=== PATIENT | female | born 1985 | race Caucasian/White ===

== ENCOUNTER 2018-11-08 22:23 | Emergency (ER) | payer OTHER, SELFPAY ==
[2018-11-08 22:27] VITALS: BP 141/91; PULSE 81; RESP 16; TEMP 36.7; O2SAT 100
--- NOTE | 2018-11-08 22:52 | ED.GENADUL_ITS ---
Discharge Plan Disposition Patient Disposition: STILL A PATIENT Condition: Stable Discharge Details Chief Complaint: Nk/Back Pain Clinical Impression: Lumbar back pain, Abdominal pain, left lower quadrant, UTI (urinary tract infection) Primary Care Provider: None,None ED Provider: Donnie Kelly Home Meds and New Rx's Prescriptions: New acetaminophen [Mapap Extra Strength] 500 MG tablet 1,000 mg PO Q6H 5 Days Qty: 60 RF: 0 prednisone 50 MG tablet 50 mg PO DAILY Qty: 5 RF: 0 ibuprofen [Motrin IB] 200 MG tablet 600 mg PO Q6H 5 Days Qty: 60 RF: 0 lidocaine [Lidoderm] 1 PATCH patch 1 patch Topical Q24H Qty: 4 RF: 0 cyclobenzaprine 7.5 mg tablet 7.5 mg PO TID Qty: 30 RF: 0 cephalexin [Keflex] 500 mg capsule 500 mg PO BID Qty: 10 RF: 0 Discharge Instructions Instructions: Urinary Tract Infection in Women (ED), Low Back Strain (ED) Additional Instructions: Please take medications as directed. If you notice any worsening of your symptoms, or any new symptoms such as vomiting, diarrhea, fever, chills, shortness of breath, chest pain, numbness, bowel or bladder incontinence, weakness, or fainting , please return immediately to the emergency department for reevaluation. Please follow up with your primary care provider as soon as possible for reassessment and reevaluation. As always, it was a pleasure participating in your medical care today. Medical Decision Making <Donnie Kelly MD - Last Filed: 11/08/18 23:06> 33 yo female who denies chronic medical problems, smoker, denies alcohol or drug use, who comes i n with chief complaint of lower back pain that started about 3-4 horus ago. 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 She hasn't taken any pain meds. No fevers.Has has pain in the left lower back , no cva tenderness, no saddle anesthesia. SHe does note shotting sensation down both legs, intact sensation and no findings to suggest sea or cauda equina on exam. She does have llq pain on exam and has tenderness in this area. Denies vaginal bleeding or d/c. Will obtain CT to eval for possible diverticulits vs kidney stone, though I suspect the patient's symptoms are due to sciatica vs lumbar strain vs muscle spasm. pt will be signed out to Dr. Lozoya to f/u on labs and imaging results and disposition Differential Diagnosis muscle spasm, diverticulitis, lumbar strain <Myles Lozoya, - Last Filed: 11/09/18 01:03> The patient's laboratory workup has returned and there were no significant abnormalities. Minimal white count at 12, no bandemia. Renal function is normal, bilirubin is normal, liver function normal, lipase normal. Urinalysis does show evidence concerning for a urinary tract infection though. Patient has mild improvement of her symptoms, on reassessment she continues to demonstrate no concerning red flags of cauda equina syndrome, midline back pain, nuchal rigidity, or significant abdominal tenderness. She is feeling better and has been able to tolerate p.o. CT scan shows evidence of equivocal small bowel wall thickening compatible with nonspecific enteritis, no other acute process. Her back pain may be mildly musculoskeletal or it may be referred pain from her mild urinary tract infection. We will treat the UTI with Rocephin, and Keflex for home use. We will give Lidoderm patches,, steroid dose pack, and recommend NSAIDs and Flexeril. We discussed red flags for which to return. I have exten sively reviewed the treatment plan and discharge instructions with the patient and their family. I have addressed all patient concerns at this time. The patient and family was made aware of what symptoms to monitor for that would warrant a return to the emergency department. Discussed the plan with the patient and family, they demonstrate verbal understanding and agreement with our assessment and plan at this time. COMPARISON: No relevant prior studies available. FINDINGS: Lower thorax: No acute findings. ABDOMEN: Liver: Normal. No mass. Gallbladder and bile ducts: Normal. No calcified stones. No ductal dilation. Pancreas: Normal. No ductal dilation. Adrenals: Normal. No mass. Kidneys and ureters: Normal. No hydronephrosis. Stomach and bowel: Equivocal small bowel wall thickening compatible with a nonspecific enteritis, either infectious or inflammatory. Appendix: No evidence of appendicitis. PELVIS: Bladder: Unremarkable as visualized. Reproductive: Centrally located IUD in place. Probable involuting right sided ovarian follicular cyst measures 19 mm. ABDOMEN and PELVIS: Intraperitoneal space: Trace free fluid is present which is nonspecific but may reflect physiologic fluid or rupture of an ovarian cyst or follicle. Bones/joints: No acute fracture. No dislocation. Soft tissues: Unremarkable. Vasculature: Normal. No abdominal aortic aneurysm. Lymph nodes: Normal. No enlarged lymph nodes. IMPRESSION: 1. Trace free pelvic fluid. 2. Equivocal small bowel wall thickening compatible with a nonspecific enteritis, either infectious or inflammatory. 3. Probable involuting right sided ovarian follicular cyst measures 19 mm. Thank you for allowing us to participate in the care of your patient. Dictated and Authenticated by: Greyson Andrade MD 11/09/2018 12:45 AM Eastern Time ([place] & [place]) HPI <Donnie Kelly MD - Last Filed: 11/08/18 23:06> General Mode of arrival: ambulatory . Date/Time Provider Initiated Documentation: 11/08/18 22:24 . Limitations to Documentation: no limitations . Information obtained by: patient . History of Present Illness 33 year old F presents to the emergency department with the chief complaint of lower back and left lower quadrant pain, described as moderate, with intensity rated at 6. Quality is described as aching, and is localized to the back and abdomen. Patient reports no radiation. Patient started experiencing this hour(s) (5) and it has been constant. No relieving factors improve symptom(s), No exacerbating factors reported . Patient notes no other symptoms.. Patient did receive the following treatments prior to arrival, none Related Data Home Medications Medication Instructions Recorded Confirmed acetaminophen [Mapap Extra 1,000 mg PO Q6H 5 Days #60 tab 11/09/18 Strength] cephalexin [Keflex] 500 mg PO BID #10 cap 11/09/18 cyclobenzaprine 7.5 mg PO TID #30 tab 11/09/18 ibuprofen [Motrin Ib] 600 mg PO Q6H 5 Days #60 tab 11/09/18 lidocaine [Lidoderm] 1 patch TOPICAL Q24H #4 patch 11/09/18 prednisone 50 mg PO DAILY #5 tab 11/09/18 Previous Rx's Medication Instructions Recorded acetaminophen [Mapap Extra 1,000 mg PO Q6H 5 Days #60 tab 11/09/18 Strength] cephalexin [Keflex] 500 mg PO BID #10 cap 11/09/18 cyclobenzaprine 7.5 mg PO TID #30 tab 11/09/18 ibuprofen [Motrin Ib] 600 mg PO Q6H 5 Days #60 tab 11/09/18 lidocaine [Lidoderm] 1 patch TOPICAL Q24H #4 patch 11/09/18 prednisone 50 mg PO DAILY #5 tab 11/09/18 Allergies Allergy/AdvReac Type Severity Reaction Status Date / Time No Known Allergies Allergy Unverified 11/08/18 22:30 General Stated Complaint: Nk/Back Pain NEO: 3 Review of Systems <Donnie Kelly MD - Last Filed: 11/08/18 23:06> Review of Systems All systems reviewed & are unremarkable except as noted in HPI and below Constitutional Denies chills, Denies fever(s) and Denies weakness Cardiovascular Denies chest pain and Denies dyspnea Respiratory Denies cough and Denies dyspnea Gastrointestinal Denies abdominal pain, Denies nausea and Denies vomiting Musculoskeletal Denies joint swelling Integumentary/Breasts Denies rash Neurologic Denies weakness PFSH <Donnie Kelly MD - Last Filed: 11/08/18 23:06> Social History Smoking and Tabacco status: Current every day Exam <Donnie Kelly MD - Last Filed: 11/08/18 23:06> Const General: no acute distress Orientation: alert HENID Head: normal to inspection Ears: external ears normal General nose exam: external nose normal Mouth: moist mucous membranes Eyes General: appearance normal, both eyes and all related structures Neck Neck: normal visual inspection Resp Effort & Inspection: normal respiratory effort and able to speak in complete sentences Cardio Rate: regular rate GI Inspection: normal to inspection and no abdominal wall ecchymosis Skin General skin exam: no rashes or lesions noted Neuro General: alert and oriented x3 Extrem General: normal to inspection Psych Mental Status: mental status grossly normal Course <Donnie Kelly MD - Last Filed: 11/08/18 23:06> Vital Signs Temperature 36.7 C 11/08/18 22:27 Pulse 81 11/08/18 22:27 Respiratory Rate 16 11/08/18 22:27 Blood Pressure 141/91 H 11/08/18 22:27 Pulse Oximetry 100 11/08/18 22:27 Temperature 36.7 C 11/08/18 22:27 Temperature Source Temporal Artery Scan 11/08/18 22:27 Pulse 81 11/08/18 22:27 Respiratory Rate 16 11/08/18 22:27 Respiratory Effort 11/08/18 22:30 Blood Pressure 141/91 H 11/08/18 22:27 Blood Pressure Position Sitting 11/08/18 22:27 Pulse Oximetry 100 11/08/18 22:27 Oxygen Delivery Method Room Air 11/08/18 22:27 Oxygen Flow Rate 0 11/08/18 22:27 Pain Level 8 11/08/18 22:31
[2018-11-08] MEDS: Ketorolac 30 MG/ML VIAL IVP (23:02)
[2018-11-08] MEDS: Normal Saline Flush 10 ML SYR IVP ×2 (23:03→23:25)
[2018-11-08] MEDS: Normal Saline 1,000 ML 1000 ML IV (23:03)
[2018-11-08 23:20] LABS: Bilirubin Negative (Negative); Blood Moderate (Negative); Clarity Clear; Glucose Negative (Negative); Ketones Negative (Negative); Leukocyte Esterase Large (Negative); Nitrite Negative (Negative); Specific Gravity >= 1.030 (1.005-1.025); Urobilinogen 0.2 EU/dL (Up TO 0.2)
[2018-11-08 23:22] LABS: Abs Immature Grans 0.02 k/cumm (0.0-0.09); Absolute Basophil Count 0.05 k/cumm (0.0-0.2); Absolute Eosinophil Count 0.63 k/cumm (0.0-0.7); Absolute Lymphocyte Count 3.38 k/cumm (1.2-3.4); Absolute Monocyte Count 0.74 k/cumm (0.11-0.7); Basophils % 0.4; Eosinophils % 4.9; HCT 40.1 % (36.0-46.0); HGB 13.5 g/dL (12.0-15.5); Immature Grans % 0.2; Lymphocytes % 26.3; Mean Corp. HGB Concentration 33.7 g/dL (32.0-36.0); Mean Corpuscular Hemoglobin 31.5 pg (27.0-33.0); Mean Corpuscular Volume 93.7 fL (80-95); Mean Platelet Volume 10.5 fL (8.0-11.0); Monocytes % 5.8; Neutrophils % 62.4; Platelet Count 259 x1000/uL (130-400); RBC 4.28 m/cumm (4.00-5.20); RBC Distribution Width 12.1 % (11.7-14.6); White Blood Cell Count 12.84 k/cumm (4.4-10.8)
[2018-11-08 23:27] LABS: ALT 20 U/L (12-78); AST 13 U/L (15-37); Albumin 3.6 g/dL (3.4-5.0); Alkaline Phosphatase 69 U/L (46-116); Anion Gap 7.9 mmol/L (3-11); BUN 15 mg/dL (7-18); Bilirubin, Total 0.3 mg/dL (0.2-1.0); CO2 29.1 mmol/L (21.0-32.0); CREATININE 0.91 mg/dL (0.55-1.02); Calcium 8.7 mg/dL (8.5-10.1); Chloride 104 mmol/L (98-107); Glucose 79 mg/dL (70-100); Lipase 87 U/L (73-393); Potassium 3.4 mmol/L (3.5-5.1); Sodium 141 mmol/L (136-145); Total Protein 7.2 g/dL (6.4-8.2)
[2018-11-08 23:29] LABS: ALT 19 U/L (12-78); AST 14 U/L (15-37); Albumin 3.6 g/dL (3.4-5.0); Alkaline Phosphatase 72 U/L (46-116); Bilirubin, Direct 0.08 mg/dL (0.00-0.20); Bilirubin, Total 0.3 mg/dL (0.2-1.0); Magnesium 1.9 mg/dL (1.8-2.4); Total Protein 7.2 g/dL (6.4-8.2)
[2018-11-08 23:32] LABS: Bacteria Few HPF (Negative); Crystals Few Amorphous HPF (Negative); Epithelial Cells Many HPF (Negative)
[2018-11-08 23:33] LABS: C & S Indicated? No/Sq. Contamination; Casts Negative LPF (Negative); Mucus Negative (Negative)
[2018-11-08 23:37] LABS: Absolute Neutrophil Count 8.01 k/cumm (1.2-6.7)
[2018-11-08] MEDS: Omnipaque 350 MG/ML 100 ML BTL IJ (23:53)
--- NOTE | 2018-11-08 23:55 | DI.CT_ITS ---
SYMPTOM/DIAGNOSIS: LEFT LOWER ABDOMINAL PAIN CT ABDOMEN AND PELVIS: CT scan of the abdomen and pelvis was performed following the uneventful administration of intravenous contrast material. The visualized lung bases are clear. The liver is unremarkable. The portal, superior mesenteric and splenic veins are patent. The gallbladder is negative. No biliary ductal dilatation is seen. The pancreas, spleen and adrenal glands are unremarkable as are the kidneys, ureters and bladder. There is an intrauterine device in good position. The reproductive organs are otherwise unremarkable. There is a question of mild thickening of the wall of the proximal small bowel. This may represent a nonspecific enteritis. No evidence of bowel obstruction seen. There is a normal appendix present. There is a trace amount of free fluid in the pelvis which may be physiologic. No focal fluid collection is seen. No significant abdominal or pelvic adenopathy or pneumoperitoneum is present. No acute abnormality is seen in the bones. IMPRESSION: 1. Question of small bowel wall thickening which may represent a nonspecific inflammatory or infectious enteritis. 2. Trace amount of free fluid in the pelvis which is likely physiologic.
[2018-11-09] MEDS: Lidocaine 5% Patch 2 PATCH TP (00:40)
--- NOTE | 2018-11-09 00:46 | DI.VRAD_ITS ---
EXAM: CT Abdomen and Pelvis With Contrast EXAM DATE/TIME: 11/08/2018 10:46 PM CLINICAL HISTORY: 33 years old, female; Pain; Abdominal pain and other: Back and pelvis pain; Localized; Left lower quadrant (llq); Prior surgery; Surgery date: 6+ months; Surgery type: C section in 2016; Patient HX: Severe back pain and pelvis pain, llq pain off and on. PT states she tweaked her back at work TECHNIQUE: Axial computed tomography images of the abdomen and pelvis with intravenous contrast. All CT scans at this facility use at least one of these dose optimization techniques: automated exposure control; mA and/or kV adjustment per patient size (includes targeted exams where dose is matched to clinical indication); or iterative reconstruction. Coronal and sagittal reformatted images were created and reviewed. CONTRAST: 100 ml of Omnipaque 350 administered intravenously. COMPARISON: No relevant prior studies available. FINDINGS: Lower thorax: No acute findings. ABDOMEN: Liver: Normal. No mass. Gallbladder and bile ducts: Normal. No calcified stones. No ductal dilation. Pancreas: Normal. No ductal dilation. Spleen: Normal. No splenomegaly. Adrenals: Normal. No mass. Kidneys and ureters: Normal. No hydronephrosis. Stomach and bowel: Equivocal small bowel wall thickening compatible with a nonspecific enteritis, either infectious or inflammatory. Appendix: No evidence of appendicitis. PELVIS: Bladder: Unremarkable as visualized. Reproductive: Centrally located IUD in place. Probable involuting right sided ovarian follicular cyst measures 19 mm. ABDOMEN and PELVIS: Intraperitoneal space: Trace free fluid is present which is nonspecific but may reflect physiologic fluid or rupture of an ovarian cyst or follicle. Bones/joints: No acute fracture. No dislocation. Soft tissues: Unremarkable. Vasculature: Normal. No abdominal aortic aneurysm. Lymph nodes: Normal. No enlarged lymph nodes. IMPRESSION: 1. Trace free pelvic fluid. 2. Equivocal small bowel wall thickening compatible with a nonspecific enteritis, either infectious or inflammatory. 3. Probable involuting right sided ovarian follicular cyst measures 19 mm. Dictated and Authenticated by: Greyson Andrade MD. Ordering:ELISSA Fields MD
[2018-11-09] MEDS: methylPREDNISolone SUCC 125 MG VIAL IVP (01:26)
[2018-11-09 01:37] VITALS: BP 119/75; PULSE 68; RESP 15; TEMP 36.7; O2SAT 100
== END 2018-11-09 01:49 | disposition still patient (30) ==
LOC: ER 11-09 01:55
PROVIDERS: Emergency Provider Emergency Medicine
DX: M54.5 Low back pain (principal); X50.1XXA Overexertion from prolonged static or awkward postures, initial encounter; Y92.71 Barn as the place of occurrence of the external cause; R10.32 Left lower quadrant pain; N39.0 Urinary tract infection, site not specified
CPT/HCPCS: 36415; 80053; 80076; 81025; 83690; 96361; 96365; 96375; 99284; 74177; 81003; 81015; 83735; 85025; J1885; J2930; J3490

== ENCOUNTER 2020-05-18 08:50 | Observation (INO) | payer BC, SELFPAY ==
[2020-05-18] VITALS (38 sets, daily range): BP systolic 102–134; BP diastolic 64–90; PULSE 50–98; RESP 14–22; TEMP 36.1–36.6; O2SAT 95–188
--- NOTE | 2020-05-18 09:08 | ED.GENADUL_ITS ---
Discharge Plan Disposition Patient Disposition: [facility] INPATIENT Condition: Stable Discharge Details Chief Complaint: Abd Prob Clinical Impression: Acute cholecystitis Attending Provider: Martha Dubon Primary Care Provider: Jemima Palacio ED Provider: Trudi Crum Discharge Data Discharge Date/Time-TO BE ENTERED AT DEPARTURE: 05/18/20 14:26 Medical Decision Making 0900 -- 34yo F with a history of and D&C who presents with upper abdominal and right lower quadrant with multiple episodes of bilious vomiting since yesterday. Vitals within normal limits. She appears uncomfortable and moaning in pain. Sh e has right upper quadrant, left upper quadrant and right lower quadrant tenderness abdomen is soft without rigidity. Differential diagnosis includes GERD, gastritis, PUD, cholelithiasis, cholecystitis, appendicitis, etc. Will place an IV, bolus IV fluids, screening labs, GI cocktail, Pepcid, Zofran and obtain a CT abdomen and right upper quadrant ultrasound. test negative. 1130 --labs and imaging reviewed. White blood cell count 10.83. 20-50 WBCs in urinalysis but appears contaminated. Between gallbladder ultrasound and CT abdomen, findings appear consistent with acute cholecystitis. Patient reassessed and she denies any relief of pain. Will give a dose of morphine. Case discussed with general surgery who will come to evaluate patient in the ED. 1300 --Dr. Dubon evaluated patient at bedside. Patient denies any significant relief of pain. Patient offered to go home with follow-up with surgery in the office or can do cholecystectomy today. Patient states she is in too much pain to go home. Dr. Dubon will take to the OR. Medical Records Medical records reviewed: Yes I reviewed the patient's medical records. Imaging Data Radiologic Study: Radiologist's impression: US ABDOMEN CLINICAL HISTORY: RUQ abd pain, r/o cholelithiasis/cholecystitis TECHNIQUE: Ultrasound abdomen performed using standard protocol. COMPARISON: No exams were available for comparison FINDINGS: LIVER: Normal size and echogenicity. No focal liver lesions are seen.. GALLBLADDER: A 2 centimeter mobile gallstone and sludge are noted.. No evidence of wall thickening. No pericholecystic fluid identified. TOLLIVER'S SIGN: Negative. BILIARY SYSTEM: No intrahepatic or extrahepatic biliary ductal dilation. KIDNEYS: Kidneys are symmetric in size. No evidence of renal calculi. No evidence of hydronephrosis. No renal mass or cyst identified. PANCREAS: Normal where visualized. SPLEEN: Not enlarged. ABDOMINAL AORTA AND IVC: Visualized portions normal caliber. ASCITES: None seen. IMPRESSION: Cholelithiasis and gallbladder sludge. No findings to suggest acute cholecystitis. CT ABDOMEN PELVIS W CLINICAL HISTORY: LUQ/RUQ/RLQ pain, r/o appendicitis, cholecystitis. TECHNIQUE: Imaging Protocol: Axial computed tomography images with coronal and sagittal reformatted images were created and reviewed CONTRAST MATERIAL: Intravenous: Omnipaque 350 Contrast volume:100 cc Oral: no COMPARISON: CT CT ABDOMEN PELVIS W from 11/08/2018 US US ABDOMEN from 05/18/2020 FINDINGS: ABDOMEN: Lung Bases: Normal where visualized. Liver: Normal density. No measurable mass. Gallbladder and biliary tract: No radiodense calculus. There is mild distention is well as wall thickening. There is a trace amount of pericholecystic fluid. There is mild periportal edema. No biliary dilatation is seen. The findings could indicate acute cholecystitis. Pancreas: Normal density, no abnormal calcifications or inflammatory process. Spleen: Normal. Kidneys: Normal size, contour and axis. No radiodense stones or obstructive uropathy. No masses seen. Adrenal glands: No masses seen. Abdominal Aorta: Abdominal portion non-dilated. PELVIS: Bladder: Symmetric distention, no gross wall thickening. Bowel: No obstruction or bowel wall thickening. Normal appendix. Peritoneal cavity: No ascites, collection or mesenteric inflammatory response. Bones: Within normal limits. Reproductive organs: An IUD is noted within the uterus. The ovaries are unremarkable. Lymph nodes: Unremarkable. Impression: Gallbladder distention with wall thickening and pericholecystic fluid, suspi cious for acute cholecystitis. Lab Data Lab results reviewed: Yes I reviewed the patient's lab results. Labs: Laboratory Tests Range/Units 05/18/20 05/18/20 05/18/20 09:00 09:00 09:12 WBC (4.4-10.8) 10^3/uL 10.83 H RBC (3.93-5.22) 10^6/uL 4.32 Hgb (11.2-15.7) g/dL 13.5 Hct (36.0-46.0) % 39.8 MCV (80-95) fL 92.1 MCH (27.0-33.0) pg 31.3 MCHC (32.0-36.0) % 33.9 RDW (11.7-14.6) % 12.4 Plt Count (130-400) 10^3/uL 181 MPV (8.0-11.0) fL 10.8 Immature Gran % 0.3 Neutrophils % 78.0 Lymphocytes % 15.1 Monocytes % 4.6 Eosinophils % 1.5 Basophils % 0.5 Nucleated RBC % % 0 Absolute Neutrophils (1.2-6.7) 10^3/uL 8.45 H Absolute Lymphocytes (1.2-3.4) 10^3/uL 1.64 Absolute Monocytes (0.1-0.8) 10^3/uL 0.50 Absolute Eosinophils (0.0-0.7) 10^3/uL 0.16 Absolute Basophils (0.0-0.2) 10^3/uL 0.05 Sodium (136-145) mmol/L 142 Potassium (3.5-5.1) mmol/L 3.5 Chloride (98-107) mmol/L 105 Carbon Dioxide (21.0-32.0) mmol/L 28.2 Anion Gap (3-11) mmol/L 8.8 BUN (7-18) mg/dL 13 Creatinine (0.55-1.02) mg/dL 0.82 Estimated GFR/1.73 m2 (mL/min/1.73m2) >= 60.00 Glucose (74-106) mg/dL 136 H Calcium (8.5-10.1) mg/dL 8.8 Total Bilirubin (0.2-1.0) mg/dL 0.3 AST (15-37) U/L 17 ALT (14-59) U/L 31 Alkaline Phosphatase (46-116) U/L 63 Total Protein (6.4-8.2) g/dL 6.9 Albumin (3.4-5.0) g/dL 3.8 Lipase (73-393) U/L 57 Urine Color (Yellow) Yellow Urine Clarity (Clear) Sl cloudy Urine pH (5-8) 6.0 Ur Specific [place] (1.005-1.025) >= 1.030 H Urine Protein (Negative) mg/dL Negative Urine Ketones (Negative) mg/dL Trace H Urine Blood (Negative) Negative Urine Nitrite (Negative) Negative Urine Bilirubin (Negative) Negative Urine Urobilinogen (Up TO 0.2) EU/dL 0.2 Ur Leukocyte Esterase (Negative) Small H Urine RBC (0-2) HPF 3-5 H Urine WBC (0-5) HPF 20-50 H Ur Epithelial Cells (Negative) HPF Many Urine Crystals (Negative) HPF Negative Urine Bacteria (Negative) HPF Many Urine Casts (Negative) LPF Negative Urine Mucus (Negative) Moderate Ur Culture Indicated? No/sq. contamination Urine Glucose (Negative) mg/dL Negative HPI General Mode of arrival: ambulatory . Date/Time Provider Initiated Documentation: 05/18/20 08:57 . Limitations to Documentation: no limitations . Information obtained by: patient . HPI Narrative: Patient is a 34-year-old female with a history of and D&C who presents for sharp abdominal pain with a few episodes of vomiting since yesterday. Patient describes the pain as constant, sharp located in the upper abdomen and right lower quadrant. She has vomited food and bile a few times since yesterday, last episode 30 minutes ago. She had a small normal bowel movement this morning. She denies any known fever, diarrhea, urinary symptoms. Related Data Home Medications Medication Instructions Recorded Confirmed cyclobenzaprine 5 mg tablet 10 mg PO HS PRN tab 11/12/18 05/18/20 ibuprofen 800 mg tablet 800 mg PO TID PRN tab 11/12/18 05/18/20 Iud 1 ea DIRECTED 05/18/20 05/18/20 Allergies Allergy/AdvReac Type Severity Reaction Status Date / Time No Known Allergies Allergy Verified 05/18/20 08:59 General Stated Complaint: Abd Prob NEO: 3 Review of Systems All systems reviewed & are unremarkable except as noted in HPI and below Constitutional Constitutional: Reports as per HPI, Denies chills and Denies fever(s) Eyes Eyes: Denies blurry vision ENT Ears, Nose, Mouth, and Throat: Denies dizziness, Denies sore throat and Denies throat swelling Cardiovascular Cardiovascular: Denies chest pain and Denies dyspnea Respiratory Respiratory: Denies cough and Denies dyspnea Gastrointestinal Gastrointestinal: Reports abdominal pain, Denies diarrhea and Reports vomiting Genitourinary Genitourinary: Denies hematuria and Denies dysuria Musculoskeletal Musculoskeletal: Denies back pain and Denies numbness Integumentary/Breasts Skin/Breast: Denies lesions and Denies rash Neurologic Neurologic: Denies dizziness, Denies localized weakness and Denies numbness Allergic/Immunologic Allergic/Immunologic: Denies throat swelling [facility] Medical History (Updated 05/18/20 @ 15:14 by Trudi Crum DO) Anemia (Resolved) Back pain (Chronic) history intermittent back pain for years. 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 [employer] What type of physical activity do you participate in: regular exercise Do you feel safe at home: Yes Do you feel safe in your relationship?: Yes Exam Const General: cooperative, healthy appearing and no acute distress HENMT Head: normal to inspection Mouth: oral mucosae normal Eyes General: appearance normal, both eyes and all related structures Neck Neck: normal visual inspection Chest Chest: normal inspection of the chest Resp Effort & Inspection: normal respiratory effort and able to speak in complete sentences Auscultation: clear to auscultation bilaterally Cardio Rate: regular rate Rhythm: regular rhythm GI Inspection: normal to inspection Palpation: soft, not firm, no guarding, no masses, not rigid and tender in the RLQ, in the LUQ and in the RUQ Auscultation: normal bowel sounds Skin General skin exam: no rashes or lesions noted Neuro General: patient alert, patient awake and patient oriented x3 Motor: muscle tone normal throughout Extrem General: normal to inspection and full ROM Psych Appearance: grossly normal Affect: normal affect Course Vital Signs Vital signs: Vital Signs Temperature 97.7 F 05/18/20 08:52 Pulse 70 05/18/20 08:52 Respiratory Rate 16 05/18/20 08:52 Blood Pressure 111/78 05/18/20 08:52 Pulse Oximetry 100 05/18/20 08:52 Temperature 97.7 F 05/18/20 08:52 Temperature Source Skin 05/18/20 08:52 Pulse 70 05/18/20 08:52 Respiratory Rate 16 05/18/20 08:52 Respiratory Effort 05/18/20 09:04 Blood Pressure 111/78 05/18/20 08:52 Blood Pressure Position Sitting 05/18/20 08:52 Pulse Oximetry 100 05/18/20 08:52 Oxygen Delivery Method Room Air 05/18/20 08:52 Oxygen Flow Rate 0 05/18/20 08:52 Pain Level 8 05/18/20 08:52
[2020-05-18 09:25] LABS: Abs Immature Grans 0.03 10^3/uL (0.0-0.06); Absolute Basophil Count 0.05 10^3/uL (0.0-0.2); Absolute Eosinophil Count 0.16 10^3/uL (0.0-0.7); Absolute Lymphocyte Count 1.64 10^3/uL (1.2-3.4); Absolute Neutrophil Count 8.45 10^3/uL (1.2-6.7); Basophils % 0.5; Eosinophils % 1.5; HCT 39.8 % (36.0-46.0); HGB 13.5 g/dL (11.2-15.7); Immature Grans % 0.3; Lymphocytes % 15.1; MCH 31.3 pg (27.0-33.0); MCHC 33.9 % (32.0-36.0); MCV 92.1 fL (80-95); MPV 10.8 fL (8.0-11.0); Monocytes % 4.6; Nucleated RBC 0 %; Platelet Count 181 10^3/uL (130-400); RBC 4.32 10^6/uL (3.93-5.22); RDW 12.4 % (11.7-14.6); RDW-SD 42.4 fL; WBC 10.83 10^3/uL (4.4-10.8)
[2020-05-18 09:27] LABS: Bilirubin Negative (Negative); Blood Negative (Negative); Clarity Sl Cloudy (Clear); Glucose Negative (Negative); Ketones Trace mg/dL (Negative); Leukocyte Esterase Small (Negative); Nitrite Negative (Negative); Specific Gravity >= 1.030 (1.005-1.025); Urobilinogen 0.2 EU/dL (Up TO 0.2)
--- NOTE | 2020-05-18 09:30 | DI.US_ITS ---
EXAM: US ABDOMEN CLINICAL HISTORY: RUQ abd pain, r/o cholelithiasis/cholecystitis TECHNIQUE: Ultrasound abdomen performed using standard protocol. COMPARISON: No exams were available for comparison FINDINGS: LIVER: Normal size and echogenicity. No focal liver lesions are seen.. GALLBLADDER: A 2 centimeter mobile gallstone and sludge are noted.. No evidence of wall thickening. No pericholecystic fluid identified. TOLLIVER'S SIGN: Negative. BILIARY SYSTEM: No intrahepatic or extrahepatic biliary ductal dilation. KIDNEYS: Kidneys are symmetric in size. No evidence of renal calculi. No evidence of hydronephrosis. No renal mass or cyst identified. PANCREAS: Normal where visualized. SPLEEN: Not enlarged. ABDOMINAL AORTA AND IVC: Visualized portions normal caliber. ASCITES: None seen. IMPRESSION: Cholelithiasis and gallbladder sludge. No findings to suggest acute cholecystitis.. DATA REPOSITORY:
--- NOTE | 2020-05-18 09:30 | DI.CT_ITS ---
EXAM: CT ABDOMEN PELVIS W CLINICAL HISTORY: LUQ/RUQ/RLQ pain, r/o appendicitis, cholecystitis. TECHNIQUE: Imaging Protocol: Axial computed tomography images with coronal and sagittal reformatted images were created and reviewed CONTRAST MATERIAL: Intravenous: Omnipaque 350 Contrast volume:100 cc Oral: no COMPARISON: CT CT ABDOMEN PELVIS W from 11/08/2018 US US ABDOMEN from 05/18/2020 FINDINGS: ABDOMEN: Lung Bases: Normal where visualized. Liver: Normal density. No measurable mass. Gallbladder and biliary tract: No radiodense calculus. There is mild distention is well as wall thic kening. There is a trace amount of pericholecystic fluid. There is mild periportal edema. No bilia ry dilatation is seen. The findings could indicate acute cholecystitis. Pancreas: Normal density, n o abnormal calcifications or inflammatory process. Spleen: Normal. Kidneys: Normal size, contour and axis. No radiodense stones or obstructive uropathy. No masses seen. Adrenal glands: No masses seen. Abdominal Aorta: Abdominal portion non-dilated. PELVIS: Bladder: Symmetric distention, no gross wall thickening. Bowel: No obstruction or bowel wall thickening. Normal appendix. Peritoneal cavity: No ascites, collection or mesenteric inflammatory response. Bones: Within normal limits. Reproductive organs: An IUD is noted within the uterus. The ovaries are unremarkable. Lymph nodes: Unremarkable. Impression: Gallbladder distention with wall thickening and pericholecystic fluid, suspicious for acute cholecyst itis. RADIATION DOSE DELIVERED: 824.34mGy.cm Total DLP DATA REPOSITORY: All CT scans at this facility are submitted to the National Radiology Data Registry (NRDR) Dose Index Registry (DIR) with the [employer] (ACR). RADIATION OPTIMIZATION: All CT scans at this facility use at least one of these dose optimization te chniques: automated exposure control; mA and/or kV adjustment per patient size (includes targeted exa ms where dose is matched to clinical indication); or iterative reconstruction.
[2020-05-18 09:41] LABS: Bacteria Many HPF (Negative); C & S Indicated? No/Sq. Contamination; Casts Negative LPF (Negative); Crystals Negative HPF (Negative); Epithelial Cells Many HPF (Negative); Mucus Moderate (Negative); WBC 20-50 HPF (0-5)
[2020-05-18 09:42] LABS: ALT 31 U/L (14-59); AST 17 U/L (15-37); Albumin 3.8 g/dL (3.4-5.0); Alkaline Phosphatase 63 U/L (46-116); Anion Gap 8.8 mmol/L (3-11); BUN 13 mg/dL (7-18); Bilirubin, Total 0.3 mg/dL (0.2-1.0); CO2 28.2 mmol/L (21.0-32.0); CREATININE 0.82 mg/dL (0.55-1.02); Calcium 8.8 mg/dL (8.5-10.1); Chloride 105 mmol/L (98-107); Glucose 136 mg/dL (74-106); Lipase 57 U/L (73-393); Potassium 3.5 mmol/L (3.5-5.1); Sodium 142 mmol/L (136-145); Total Protein 6.9 g/dL (6.4-8.2)
[2020-05-18] MEDS: Ondansetron 4 MG/2 ML VIAL IVP (09:53)
[2020-05-18] MEDS: FAMOTIDINE 20 MG/50 ML BAG 200 MG IVPB (09:58)
[2020-05-18] MEDS: Normal Saline 1,000 ML 1000 ML IV (10:01)
[2020-05-18] MEDS: Normal Saline - Diluent 50 ML VIAL IV (10:49)
[2020-05-18] MEDS: Omnipaque 350 MG/ML 100 ML BTL IJ (10:49)
--- NOTE | 2020-05-18 11:56 | NUR.NOTE ---
Patient aware she is waiting for the surgeon to come see her. Resting quietly.Nursing Note:
--- NOTE | 2020-05-18 12:12 | NUR.NOTE ---
Surgeon at bedside. Nursing Note:
--- NOTE | 2020-05-18 12:41 | W.SURGCON ---
Date of service: 05/18/20 Time of Service: 12:41 Assessment and Plan Assessment and plan (1) Gallstones without obstruction of gallbladder: Status: Acute Assessment and plan: With a very mild associated with acute cholecystitis. I would not even treat this with antibiotics. I did discuss with the patient the etiology of gallstones. Patient is unsure what she wants to do at this point if she wants to go home if she wants to stay in the hospital. She does seem to be in a fair amount of pain. She would need 2 weeks off work for recovery. Given her labs are relatively normal except for mild elevation of her white count. Her CT and ultrasound are essentially normal. Certainly letting her go home and follow-up in the office to do a scheduled outpatient surgery is very reasonable. However she is decided she is in too much pain and cannot tolerate going home we could proceed to surgery as well. Either option is a viable at this time, and it depends on how much the pain the patient is having. The alternatives to surgery, risks, complications, and the possible need to convert to open cholecystectomy were discussed. Also bleeding, infection, pneumonia, blood clots, complications of anesthesia, damage to bowel, bladder, blood vessels, or bile ducts, liver, need for blood transfusions. Also: chronic pain, chronic diarrhea, reoccurrence of signs and symptoms, port site hernias, adhesions. . Also d/w pt dietary restrictions and warning signs of when to go to ER. High-fat foods include: ? Foods that are fried, like Japanese fries and potato chips ? High-fat meats, such as anaya, bologna, sausage, ground beef, and ribs, pork products ? High-fat dairy products, such as cheese, ice cream, cream, whole milk, and sour cream ? Pizza ? Foods made with lard or butter ? Creamy soups or sauces ? Meat gravies ? Chocolate ? Oils, such as palm and coconut oil ? Skin of chicken or turkey High-fiber and gas-producing foods can also cause some people discomfort after gallbladder surgery, so you may want to introduce them slowly back into your diet. These include: ? Cereals ? Whole-grain breads ? Nuts ? Seeds ? Legumes ? Marcus sprouts ? Broccoli ? Cauliflower ? Cabbage Spicy foods may also cause some gastrointestinal symptoms for a short time after gallbladder removal. History of Present Illness Narrative: Ms. Alfaro is a 34-year-old old female comes to the ER today with right upper quadrant pain. She woke up at about 4 AM this morning with right upper quadrant pain that radiates into her back associated nausea and vomiting. She ate pizza last night. She is never had pain like this before. This is her first attack. She denies any fever or chills she says she is very nauseated and still having significant amount of pain. She has had children. She has a IUD but thinks it is nonhormonal. I did review her labs and her x-rays. She has minimal acute cholecystitis. She does not have any signs of common bile duct stone. Her past surgeries include a D&C and with a Pfannenstiel cut. She had no problems with anesthesia. She is a smoker. She denies any asthma or COPD symptoms. She denies diabetes. She denies any heart lung or kidney problems. She is not on any prescription medications. Past medical history notes history of anemia. She is not anemic on her CBC today. On exam she still has pretty significant right upper quadrant tenderness. Consults Consult date: 05/18/20 Requesting physician: Trudi Crum Review of Systems All systems reviewed & are unremarkable except as noted in HPI and below PFSH Medical History (Updated 05/18/20 @ 12:51 by Martha Dubon DO) Anemia (Resolved) Back pain (Chronic) history intermittent back pain for years. 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 [employer] What type of physical activity do you participate in: regular exercise Do you feel safe at home: Yes Do you feel safe in your relationship?: Yes Exam Const General: cooperative, healthy appearing, comfortable, no acute distress, well developed and well groomed Nutritional Appearance: average body habitus and well nourished Orientation: alert, awake and oriented x3 [facility] Head: normal to inspection, normocephalic and atraumatic Ears: hearing grossly normal bilaterally and external ears normal General nose exam: external nose normal Face and sinus: normal facial exam and sinuses nontender Mouth: oral mucosae normal, lip normal, tongue normal and moist mucous membranes Teeth and gingiva: dentition normal Eyes General: appearance normal, both eyes and all related structures Conjunctivae: conjunctivae normal Sclera: sclerae normal Pupils: PERRL Neck Neck: normal visual inspection and full ROM Chest Chest: normal inspection of the chest Resp Effort & Inspection: normal respiratory effort, able to speak in complete sentences, no cough, no nasal flaring, not tachypneic and no use of accessory muscles Auscultation: clear to auscultation bilaterally, no rales, no rhonchi and no wheezes Cardio Jugular venous pressure: no JVD Rate: regular rate Rhythm: regular rhythm GI Inspection: normal to inspection, no edema and non-distended Palpation: soft, no masses, tender in the RUQ and at McBurney's point and No ascites Auscultation: normal bowel sounds Other: No umbilical hernias. She still has pretty significant right upper quadrant tenderness. No diffuse peritonitis or distention. Skin General skin exam: no rashes or lesions noted Trauma: no lacerations or abrasions Neuro General: patient alert, patient oriented x3, oriented, gait normal, moves all extremities, no focal motor deficits and CN's II-XI intact bilaterally Cognition: normal cognition Speech: speech normal Gait: normal gait Motor: muscle tone normal throughout Extrem General: normal to inspection, full ROM and no clubbing, cyanosis or edema Psych Appearance: grossly normal and well kempt Mental Status: mental status grossly normal Speech and Movement: speech and movement normal Affect: normal affect Results Last Vital Signs Temp 36.5 C 05/18/20 08:52 Pulse 51 L 05/18/20 11:55 Resp 16 05/18/20 11:55 BP 109/67 05/18/20 11:55 Pulse Ox 100 05/18/20 11:55 Labs Result diagrams: 05/18/20 09:00 05/18/20 09:00 Labs: Laboratory Results - last 24 hr 05/18/20 05/18/20 05/18/20 09:00 09:00 09:12 WBC 10.83 H RBC 4.32 Hgb 13.5 Hct 39.8 MCV 92.1 MCH 31.3 MCHC 33.9 RDW 12.4 Plt Count 181 MPV 10.8 Immature Gran % 0.3 Neutrophils % 78.0 Lymphocytes % 15.1 Monocytes % 4.6 Eosinophils % 1.5 Basophils % 0.5 Nucleated RBC % 0 Absolute Neutrophils 8.45 H Absolute Lymphocytes 1.64 Absolute Monocytes 0.50 Absolute Eosinophils 0.16 Absolute Basophils 0.05 Sodium 142 Potassium 3.5 Chloride 105 Carbon Dioxide 28.2 Anion Gap 8.8 BUN 13 Creatinine 0.82 Estimated GFR/1.73 m2 >= 60.00 Glucose 136 H Calcium 8.8 Total Bilirubin 0.3 AST 17 ALT 31 Alkaline Phosphatase 63 Total Protein 6.9 Albumin 3.8 Lipase 57 Urine Color Yellow Urine Clarity Sl cloudy Urine pH 6.0 Ur Specific [place] >= 1.030 H Urine Protein Negative Urine Ketones Trace H Urine Blood Negative Urine Nitrite Negative Urine Bilirubin Negative Urine Urobilinogen 0.2 Ur Leukocyte Esterase Small H Urine RBC 3-5 H Urine WBC 20-50 H Ur Epithelial Cells Many Urine Crystals Negative Urine Bacteria Many Urine Casts Negative Urine Mucus Moderate Ur Culture Indicated? No/sq. contamination Urine Glucose Negative
--- NOTE | 2020-05-18 13:26 | NUR.NOTE ---
Patient to go to the OR. Anesthesia talking with patient. Nursing Note:
[2020-05-18] MEDS: ceFAZolin 2 GM/50 ML BAG IVPB (13:51)
[2020-05-18] MEDS: Lactated Ringers 1,000 ML 100 ML IV (14:20)
--- NOTE | 2020-05-18 15:17 | GB_PTH ---
PATIENT: Maritza Alfaro LOC: U#:[id number] AGE/SX: 34/F ROOM: RE05/18/[address]: Martha Dubon : 1985 BED: A DIS: 05/20/2020 SPEC #: [id number] RECD: 05/18/20 17:49 STATUS: QUINTON REZulema #: [id number] ANNELISE: 05/18/20 15:[address]: Martha Dubon DEPT: Surgical Specimen RECD BY: Yuliet Mendes ENTERED: 05/18/20 17:49 SP TYPE: GB OTHR DR: Jemima Palacio Tissues: 1 - GALLBLADDER Procedures: GROSS AND MICRO LEVEL 3 Comments: [id number]
--- NOTE | 2020-05-18 16:17 | W.PM.OP ---
Date of service: 05/18/20 Time of Service: 16:17 Operative Note Operative Note DATE OF PROCEDURE: 05/18/20 PRE-OP DIAGNOSIS: acute kavya w/ stones POST-OP DIAGNOSIS: same PROCEDURE: lap kavya SURGEON: Martha Nelson ASSISTING SURGEON: Natasha Alexander ANESTHESIA: GETA and local ESTIMATED BLOOD LOSS: 10 PATHOLOGY: other COMPLICATIONS: None Patient was transported to: PACU Patient's condition: stable Procedure Description: CHOLECYSTECTOMY POST-OPERATIVE REPORT PRE-OPERATIVE DIAGNOSIS: cholecystitis, cholelithiasis. POST-OPERATIVE DIAGNOSIS: chronic cholecystitis, cholelithiasis PROCEDURE: Laparoscopic cholecystectomy. SURGEON: Martha Nelson DO ANESTHESIA: General. ESTIMATED BLOOD LOSS: Less than 10 mL COMPLICATIONS: The patient tolerated the procedure without complication. INDICATIONS: The pt came to the hospital via the emergency room today. She was found to have gallstones and some mild symptoms consistent with a very mild acute cholecystitis. She was given the option conservative management versus surgery. She has opted for surgical intervention. Gallbladder is. Informed consent was obtained, explaining risks and benefits of the procedure including but not limited to bleeding, infection, pneumonia, blood clots, possible damage to bowel, bladder, blood vessels, bile ducts, possible open procedure, complications of general anesthesia and other unforetold complications. PROCEDURE: The patient agrees and is brought to the operative room suite and placed in supine position. Anesthesia was administered per the Department of Anesthesia. The patient did receive IV antibiotics. NG tube and Lafleur catheter are placed. The patient was prepped and draped in the usual sterile fashion using DuraPrep scrub solution. Pause for the cause was done. 20 mL of 1% buffered lidocaine was used for local anesthetization. A stab incision was made in the umbilicus and the Verres inserted. Drop test was positive and insufflation was begun. When 15 mm of pressure was noted on the monitor, the Veress was removed and #5 port inserted. The camera was inserted through the port and shows no damage to underlying structures. A 10 mm port was then placed in the epigastric position under direct visualization following creation of local field blocks as well as two 5 mm ports in the right upper quadrant. Distended and taut. Small incision is made and it is drained bile. She has 2 large gallstones within the body of the gallbladder. And there is a slight thickening in the tissues and a moderate amount of edema of the gallbladder wall. The gallbladder fundus was grasped and retracted towards the right shoulder. Infundibulum was grasped and retracted laterally. The hepat-duodenal ligament is entered. The cystic duct and artery are dissected out and the most inferior portion of the gallbladder plate is removed from the liver and the critical view of safety was obtained after clearing away all fatty material. Endo Clips were placed across the duct and artery and these structures are divided. The remainder of the gallbladder was excised from the liver bed. The gallbladder was placed in a bag and brought out. Examination of the gallbladder shows indeed the cystic duct and artery to have been divided. The remainder of the abdomen was copiously irrigated with a liter of saline. All saline is removed. There is no bleeding or bile leakage from the liver bed or the clips sites. An EndoClose needle was used to close the 10 mm port site with an 0 Vicryl. All ports and instruments are removed. SPonge and needle counts are correct. Pneumoperitoneum is evacuated and the port sites are monitored to make sure there is no bleeding at the time of desufflation. Port sites are irrigated and the skin is closed with 4-0 Monocryl in a running subcuticular fashion. Skin glue sterile dressings are applied. The patient tolerated the procedure well without complications, transferred to the recovery room in stable condition. MARTHA NELSON DO
[2020-05-18] MEDS: traMADol 50 MG TAB PO (18:10)
[2020-05-18] MEDS: Normal Saline Flush 10 ML SYR IVP ×2 (18:11→21:54)
[2020-05-18] MEDS: PIPERACILLIN/TAZO 4.5 GM in Normal Saline 100 ML IVPB (18:11)
--- NOTE | 2020-05-18 18:39 | W.PM.PROGNOT ---
Date of Service Date of service: 05/18/20 Time of Service: 18:40 Assessment and Plan Assessment and plan (1) Acute cholecystitis: Status: Acute Assessment and plan: The patient is doing well post-op. There pain is well controlled. They are having no nausea or vomiting. The pt is not having any chest pain or SOB, productive cough; no calf pain or swelling. The pt is making good urine. The pt pain is adequately controlled. The case was discussed with nursing and pateints progress reviewed. All of the pt's home medications were addressed and adjusted accordingly for their oral intact status. HEENT: no janudice. no eye pain/drainage/redness/swelling. mild sore throat cardio- NSR no chest pain, BP stable. pulm: no sob or productive cough. no hemoptysis incision- clean/dry. dressing intact no excessive bleeding or drainage I discussed with the patient and/or there family about the findings in surgery and the pt's progress. We reviewed expectations for progress in the hospital; what the pt could expect for recovery time and length of stay. We discussed the importance of walking and pulmonary toilet to avoid blood clots and pneumonia. Continue current plans for pulmonary toilet, GI and DVT prophalxis. We shall continue the current plan for pain management as it is at an appropriate level and working well for the pts. Appropriate measures will be taken for constipation prevention as well, and this was also reviewed with the pt. wound care plan was reviewed with nursing as well. see orders (2) Gallstones without obstruction of gallbladder: Status: Acute Objective Objective Clinical Data: Abnormal lab results 05/18/20 05/18/20 05/18/20 Range/Units 09:00 09:00 09:12 WBC 10.83 H (4.4-10.8) 10^3/uL Absolute Neutrophils 8.45 H (1.2-6.7) 10^3/uL Glucose 136 H (74-106) mg/dL Ur Specific [place] >= 1.030 H (1.005-1.025) Urine Ketones Trace H (Negative) mg/dL Ur Leukocyte Esterase Small H (Negative) Urine RBC 3-5 H (0-2) HPF Urine WBC 20-50 H (0-5) HPF Vital Signs Temperature 36.2 C L 05/18/20 18:00 Temperature Source Temporal Artery Scan 05/18/20 18:00 Pulse 50 L 05/18/20 18:00 Respiratory Rate 15 05/18/20 18:00 Respiratory Effort 05/18/20 09:04 Blood Pressure 134/90 05/18/20 18:00 Blood Pressure Mean 90 05/18/20 13:16 Blood Pressure Position Sitting 05/18/20 08:52 Pulse Oximetry 98 05/18/20 18:00 Respiratory End-tidal CO2 38 05/18/20 16:39 Oxygen Delivery Method Room Air 05/18/20 18:00 Oxygen Flow Rate 0 05/18/20 18:00 Pain Level 4 05/18/20 18:10 Intake & Output 05/17/20 05/18/20 05/18/20 23:59 11:59 23:59 Intake Total 50 / 1450 1400 / 1450 Output Total 85 / 85 Balance 50 / 1365 1315 / 1365 Weight 75.8 kg Intake: IV 50 / 1450 1400 / 1450 Output: Urine 75 / 75 Estimated Blood Loss Other: Urine Color Yellow Urine Appearance Clear Emesis Description None Laboratory Results WBC 10.83 10^3/uL (4.4-10.8) H 05/18/20 09:00 RBC 4.32 10^6/uL (3.93-5.22) 05/18/20 09:00 Hgb 13.5 g/dL (11.2-15.7) 05/18/20 09:00 Hct 39.8 % (36.0-46.0) 05/18/20 09:00 MCV 92.1 fL (80-95) 05/18/20 09:00 MCH 31.3 pg (27.0-33.0) 05/18/20 09:00 MCHC 33.9 % (32.0-36.0) 05/18/20 09:00 RDW 12.4 % (11.7-14.6) 05/18/20 09:00 Plt Count 181 10^3/uL (130-400) 05/18/20 09:00 MPV 10.8 fL (8.0-11.0) 05/18/20 09:00 Immature Gran % 0.3 05/18/20 09:00 Neutrophils % 78.0 05/18/20 09:00 Lymphocytes % 15.1 05/18/20 09:00 Monocytes % 4.6 05/18/20 09:00 Eosinophils % 1.5 05/18/20 09:00 Basophils % 0.5 05/18/20 09:00 Nucleated RBC % 0 % 05/18/20 09:00 Absolute Neutrophils 8.45 10^3/uL (1.2-6.7) H 05/18/20 09:00 Absolute Lymphocytes 1.64 10^3/uL (1.2-3.4) 05/18/20 09:00 Absolute Monocytes 0.50 10^3/uL (0.1-0.8) 05/18/20 09:00 Absolute Eosinophils 0.16 10^3/uL (0.0-0.7) 05/18/20 09:00 Absolute Basophils 0.05 10^3/uL (0.0-0.2) 05/18/20 09:00 Sodium 142 mmol/L (136-145) 05/18/20 09:00 Potassium 3.5 mmol/L (3.5-5.1) 05/18/20 09:00 Chloride 105 mmol/L (98-107) 05/18/20 09:00 Carbon Dioxide 28.2 mmol/L (21.0-32.0) 05/18/20 09:00 Anion Gap 8.8 mmol/L (3-11) 05/18/20 09:00 BUN 13 mg/dL (7-18) 05/18/20 09:00 Creatinine 0.82 mg/dL (0.55-1.02) 05/18/20 09:00 Estimated GFR/1.73 m2 >= 60.00 (mL/min/1.73m2) 05/18/20 09:00 Glucose 136 mg/dL (74-106) H 05/18/20 09:00 Calcium 8.8 mg/dL (8.5-10.1) 05/18/20 09:00 Total Bilirubin 0.3 mg/dL (0.2-1.0) 05/18/20 09:00 AST 17 U/L (15-37) 05/18/20 09:00 ALT 31 U/L (14-59) 05/18/20 09:00 Alkaline Phosphatase 63 U/L (46-116) 05/18/20 09:00 Total Protein 6.9 g/dL (6.4-8.2) 05/18/20 09:00 Albumin 3.8 g/dL (3.4-5.0) 05/18/20 09:00 Lipase 57 U/L (73-393) 05/18/20 09:00 Urine Color Yellow (Yellow) 05/18/20 09:12 Urine Clarity Sl cloudy (Clear) 05/18/20 09:12 Urine pH 6.0 (5-8) 05/18/20 09:12 Ur Specific [place] >= 1.030 (1.005-1.025) H 05/18/20 09:12 Urine Protein Negative mg/dL (Negative) 05/18/20 09:12 Urine Ketones Trace mg/dL (Negative) H 05/18/20 09:12 Urine Blood Negative (Negative) 05/18/20 09:12 Urine Nitrite Negative (Negative) 05/18/20 09:12 Urine Bilirubin Negative (Negative) 05/18/20 09:12 Urine Urobilinogen 0.2 EU/dL (Up TO 0.2) 05/18/20 09:12 Ur Leukocyte Esterase Small (Negative) H 05/18/20 09:12 Urine RBC 3-5 HPF (0-2) H 05/18/20 09:12 Urine WBC 20-50 HPF (0-5) H 05/18/20 09:12 Ur Epithelial Cells Many HPF (Negative) 05/18/20 09:12 Urine Crystals Negative HPF (Negative) 05/18/20 09:12 Urine Bacteria Many HPF (Negative) 05/18/20 09:12 Urine Casts Negative LPF (Negative) 05/18/20 09:12 Urine Mucus Moderate (Negative) 05/18/20 09:12 Ur Culture Indicated? No/sq. contamination 05/18/20 09:12 Urine Glucose Negative mg/dL (Negative) 05/18/20 09:12
[2020-05-18] MEDS: Acetaminophen 500 MG TAB 1000 MG PO (19:48)
[2020-05-18] MEDS: Ketorolac 30 MG/ML VIAL IVP (21:53)
[2020-05-19] MEDS: traMADol 50 MG TAB PO ×2 (00:52→07:28)
[2020-05-19] MEDS: Acetaminophen 500 MG TAB 1000 MG PO ×4 (02:39→20:06)
[2020-05-19] MEDS: PIPERACILLIN/TAZO 4.5 GM in Normal Saline 100 ML IVPB ×3 (02:39→17:49)
[2020-05-19 03:00] VITALS: BP 123/79; PULSE 52; RESP 17; TEMP 36.8; O2SAT 98
[2020-05-19] MEDS: Ketorolac 30 MG/ML VIAL IVP ×4 (04:49→21:30)
[2020-05-19] MEDS: Normal Saline Flush 10 ML SYR IVP ×2 (04:50→21:30)
[2020-05-19 07:24] VITALS: BP 109/52; PULSE 55; RESP 17; TEMP 36.9; O2SAT 100
[2020-05-19] MEDS: Milk of Magnesia 30 ML CUP PO (07:28)
[2020-05-19] MEDS: Lactated Ringers 1,000 ML 100 ML IV (07:29)
[2020-05-19 08:37] LABS: COVID-19 RT-PCR UVMMC Result Negative (Negative)
--- NOTE | 2020-05-19 12:23 | PDOC.CMIN ---
- If Service Date Differs Date of service: 05/19/20 Time of Service: 12:25 Care Management Initial Assess REASON FOR HOSPITALIZATION:: Acute Cholecystitis PAST MEDICAL HISTORY/PAST SURGICAL HISTORY:: Medical History. Anemia (Resolved). Back pain (Chronic). history intermittent back pain for years. 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 Depression (Inactive). Gallstones without obstruction of gallbladder (Acute). Surgical History. H/O section (Chronic). History of dilation and curettage (Acute) PREVIOUS FUNCTIONAL STATUS/SOCIAL/FAMILY SUPPORTS:: Maritza lives in [facility] with her four year old son. She works at [employer] in the [employer]. She sees a sprue cutting press operator for her PCP and tries to be as natural as possible. She is independent at baseline. CURRENT FUNCTIONAL STATUS:: Maritza was sitting up in her chair when CM met with her. She reported that she was feeling better now than she was prior to surgery. She stated that she has seen her MD, who decided to keep her another night as she got sick this afternoon, and the provider would like to monitor her. She discussed having a natural approach to medicine, and how this is unusual for her to not be well. She stated that she plans to watch TV and try to rest today. CM will continue to follow. ADVANCE DIRECTIVES:: None on file. Has patient been provided with info about the portal/API?: Yes Did the patient sign up for the portal?: No CODE STATUS:: Full Code INSURANCE COVERAGE / FINANCIAL ISSUES:: [place]/ BCBS/ W Comp CURRENT HOME/COMMUNITY SERVICES/EQUIPMENT:: No current services or equipment. PRIMARY CARE PHYSICIAN:: Jemima Palacio POTENTIAL DISCHARGE NEEDS:: Evaluations for further needs, follow up appointments. PATIENT/FAMILY EDUCATION NEEDS:: Review discharge instructions regarding activity levels and medications, discussion of self care needs including ask me three. ANTICIPATED BARRIERS TO DISCHARGE:: None identified at this time. TRANSPORTATION:: via private vehicle with family. PLAN:: Anticipate Maritza will return home with no additional services once medically cleared. She will be driven home via private vehicle by family when ready. She will follow up with her PCP and discharge plan of care. CM will continue to follow.
--- NOTE | 2020-05-19 12:54 | W.PM.PROGNOT ---
Date of Service Date of service: 05/19/20 Time of Service: 08:00 Assessment and Plan Assessment and plan (1) Acute cholecystitis: Status: Acute (2) Gallstones without obstruction of gallbladder: Status: Acute Assessment and plan: Postop day #1 status post lap kavya Doing well. Advance diet this morning. Up walking. Anticipate discharge later on today. Reviewed with patient home care and expect patients. Pain control measures. Use ice Tylenol and ibuprofen. No heavy lifting or strenuous activity to and low-fat bland diet. Okay to shower. Follow-up in 1 week's time Subjective Subjective Interval history since last seen: Pt is doing well. no headaches. No CP or SOB. no productive cough. Patient has just pain localized to the area. She is tolerating clear liquids. She has not been up walking yet today. She says she has not urinated today. no leg pain or swelling. Exam HENMT Other: No eye pain. No redness or drainage. No jaundice. No throat pain or mouth pain. No dental malocclusion Resp Effort & Inspection: normal respiratory effort and able to speak in complete sentences Other: Clear to auscultation bilaterally Cardio Rate: regular rate Rhythm: regular rhythm GI Other: Incisions are clean dry and intact. No distention. Good bowel sounds. Mild pain at surgical site. Extrem General: normal to inspection, full ROM and no clubbing, cyanosis or edema Objective Objective Clinical Data: Vital Signs Temperature 36.9 C 05/19/20 07:24 Temperature Source Tympanic 05/19/20 07:24 Pulse 55 L 05/19/20 07:24 Pulse Rhythm Regular 05/19/20 08:25 Respiratory Rate 17 05/19/20 07:24 Respiratory Effort Non-Labored 05/19/20 08:25 Respiratory Depth Normal 05/19/20 08:25 Respiratory Pattern Normal 05/19/20 08:25 Blood Pressure 109/52 L 05/19/20 07:24 Blood Pressure Mean 90 05/18/20 13:16 Blood Pressure Position Sitting 05/18/20 08:52 Pulse Oximetry 100 05/19/20 07:24 Respiratory End-tidal CO2 38 05/18/20 16:39 Oxygen Delivery Method Room Air 05/19/20 07:24 Oxygen Flow Rate 0 05/19/20 07:24 Pain Level 5 05/19/20 07:28 Comment 05/18/20 19:49 Intake & Output 05/18/20 05/19/20 05/19/20 23:59 11:59 23:59 Intake Total 2149 1185.333 / 1185.333 Output Total Balance 2064 1185.333 / 1185.333 Weight 75.8 kg Intake: IV 2150 / 0 203.333 / 203.333 Oral 982 / 982 Output: Urine 75 / 75 Estimated Blood Loss Other: Urine Color Yellow Yellow Urine Appearance Clear Clear Emesis Description None Voiding Methods Toilet Laboratory Results WBC 10.83 10^3/uL (4.4-10.8) H 05/18/20 09:00 RBC 4.32 10^6/uL (3.93-5.22) 05/18/20 09:00 Hgb 13.5 g/dL (11.2-15.7) 05/18/20 09:00 Hct 39.8 % (36.0-46.0) 05/18/20 09:00 MCV 92.1 fL (80-95) 05/18/20 09:00 MCH 31.3 pg (27.0-33.0) 05/18/20 09:00 MCHC 33.9 % (32.0-36.0) 05/18/20 09:00 RDW 12.4 % (11.7-14.6) 05/18/20 09:00 Plt Count 181 10^3/uL (130-400) 05/18/20 09:00 MPV 10.8 fL (8.0-11.0) 05/18/20 09:00 Immature Gran % 0.3 05/18/20 09:00 Neutrophils % 78.0 05/18/20 09:00 Lymphocytes % 15.1 05/18/20 09:00 Monocytes % 4.6 05/18/20 09:00 Eosinophils % 1.5 05/18/20 09:00 Basophils % 0.5 05/18/20 09:00 Nucleated RBC % 0 % 05/18/20 09:00 Absolute Neutrophils 8.45 10^3/uL (1.2-6.7) H 05/18/20 09:00 Absolute Lymphocytes 1.64 10^3/uL (1.2-3.4) 05/18/20 09:00 Absolute Monocytes 0.50 10^3/uL (0.1-0.8) 05/18/20 09:00 Absolute Eosinophils 0.16 10^3/uL (0.0-0.7) 05/18/20 09:00 Absolute Basophils 0.05 10^3/uL (0.0-0.2) 05/18/20 09:00 Sodium 142 mmol/L (136-145) 05/18/20 09:00 Potassium 3.5 mmol/L (3.5-5.1) 05/18/20 09:00 Chloride 105 mmol/L (98-107) 05/18/20 09:00 Carbon Dioxide 28.2 mmol/L (21.0-32.0) 05/18/20 09:00 Anion Gap 8.8 mmol/L (3-11) 05/18/20 09:00 BUN 13 mg/dL (7-18) 05/18/20 09:00 Creatinine 0.82 mg/dL (0.55-1.02) 05/18/20 09:00 Estimated GFR/1.73 m2 >= 60.00 (mL/min/1.73m2) 05/18/20 09:00 Glucose 136 mg/dL (74-106) H 05/18/20 09:00 Calcium 8.8 mg/dL (8.5-10.1) 05/18/20 09:00 Total Bilirubin 0.3 mg/dL (0.2-1.0) 05/18/20 09:00 AST 17 U/L (15-37) 05/18/20 09:00 ALT 31 U/L (14-59) 05/18/20 09:00 Alkaline Phosphatase 63 U/L (46-116) 05/18/20 09:00 Total Protein 6.9 g/dL (6.4-8.2) 05/18/20 09:00 Albumin 3.8 g/dL (3.4-5.0) 05/18/20 09:00 Lipase 57 U/L (73-393) 05/18/20 09:00 Urine Color Yellow (Yellow) 05/18/20 09:12 Urine Clarity Sl cloudy (Clear) 05/18/20 09:12 Urine pH 6.0 (5-8) 05/18/20 09:12 Ur Specific [place] >= 1.030 (1.005-1.025) H 05/18/20 09:12 Urine Protein Negative mg/dL (Negative) 05/18/20 09:12 Urine Ketones Trace mg/dL (Negative) H 05/18/20 09:12 Urine Blood Negative (Negative) 05/18/20 09:12 Urine Nitrite Negative (Negative) 05/18/20 09:12 Urine Bilirubin Negative (Negative) 05/18/20 09:12 Urine Urobilinogen 0.2 EU/dL (Up TO 0.2) 05/18/20 09:12 Ur Leukocyte Esterase Small (Negative) H 05/18/20 09:12 Urine RBC 3-5 HPF (0-2) H 05/18/20 09:12 Urine WBC 20-50 HPF (0-5) H 05/18/20 09:12 Ur Epithelial Cells Many HPF (Negative) 05/18/20 09:12 Urine Crystals Negative HPF (Negative) 05/18/20 09:12 Urine Bacteria Many HPF (Negative) 05/18/20 09:12 Urine Casts Negative LPF (Negative) 05/18/20 09:12 Urine Mucus Moderate (Negative) 05/18/20 09:12 Ur Culture Indicated? No/sq. contamination 05/18/20 09:12 Urine Glucose Negative mg/dL (Negative) 05/18/20 09:12 COVID-19 PCR Negative (Negative) 05/18/20 14:00 Nasopharyn COVID-19 PCR Not Applicable 05/18/20 14:00 Ref Test [facility] 05/18/20 14:00
--- NOTE | 2020-05-19 12:55 | DSE_ITS ---
Date of service: 05/19/20 Time of Service: 12:56 DS: Diagnosis Discharge Diagnosis (1) Acute cholecystitis: Status: Acute (2) Gallstones without obstruction of gallbladder: Status: Acute Discharge Plan Disposition Patient Disposition: HOME Condition: Stable Discharge Details Chief Complaint: Abd Prob Clinical Impression: Acute cholecystitis Reason For Visit: ACUTE HANK W/ STONES Admit Date/Time: 05/18/20 15:51 Admit Provider: Martha Dubon Attending Provider: Martha Dubon Primary Care Provider: Jemima Palacio ED Provider: Trudi Crum Hospital Course Hospital Course: Patient was admitted through the emergency department with acute abdominal pain. She was found to have a mild acute cholecystitis. Patient elected to have surgery and underwent uneventful laparoscopic cholecystectomy and is being discharged home today for routine postoperative care. Home Meds and New Rx's Prescriptions: New tramadol 50 mg tablet 50 mg PO Q6H PRNQty: 10 RF: 0 Continued ibuprofen 800 mg tablet 800 mg PO TID PRNRF: 0 cyclobenzaprine 5 mg tablet 10 mg PO HS PRN (Reason: muscle spasm) RF: 0 Iud 1 ea DIRECTED RF: 0 Discharge Instructions Additional Instructions: Care after Gallbladder Surgery -You should walk frequently, gradually, increasing the distance. You may climb stairs, just go slowly. -You can take Advil 600mg 4 times a day with food for the first week for pain; you may take your prescription medication as prescribed-in addition to the Advil. Discontinue Advil if it hurts your stomach. Do not take Advil if you are intolerant to aspirin products or have stomach problems. ? Use an ice bag for the first 72 hours. This helps to decrease swelling, which causes pain. It is normal to be more sore/painful and swollen towards the end of the day and first thing in the morning. ? Use milk of magnesia or prune juice to prevent constipation (this is a particular side effect of pain medication). Do not allow yourself to become constipated. ? Avoid fatty or greasy foods; introduce these slowly, with care, after about 1 month. Follow the low-fat diet sheet that will be given to you at the office or hospital. ? Start out eating very small, bland amounts of food. Do not take pain pills on an empty stomach. -you can shower today. No bathe for 2 weeks. ? Do not go swimming or sit in a hot tub for two weeks. ? There are no stitches to remove. ? Do not drive your car x72hrs and then only if you have no pain and can move freely. Do not drive if you are taking narcotic pain medications. ? You may resume sexual activity whenever pain and soreness subside, usually in 2 weeks. ? Do no lift anything over 5 lbs. for the first 10 days. Minimize strenuous activity for the next two weeks. ? You may return to work in one week, or when you feel able, provided you do not have to do any heavy lifting or prolonged standing. ? You should return to Dr. Dubon?s office for a post-op appointment about one week after surgery. Please call the Surgical Clinic at: [phone] to schedule an appointment. My Medications for pain are: ibuprofen and ultram When to Call the Office: ? If the incision becomes red or swollen, or there is more than a little drainage from it. ? If you develop a temperature higher than 100.5 F. ? If your eyes turn yellow ? Vomiting and can?t keep fluids down It's helpful to know a little background: The gallbladder collects bile, a fluid that is produced by the liver, and releases it when you eat to aid the breakdown and absorption of fat. Between meals, bile collects in the gallbladder and is concentrated. When the gallbladder is removed, bile is less concentrated and it drains continuously into the intestine. This affects digestion of fat and fat- soluble vitamins. How much of a problem it is varies from person to person. With time, the body often adjusts and becomes better at digesting fatty foods. The amount of fat eaten at one time also factors into the equation. Smaller amounts of fat are easier to digest. On the other hand, large amounts can remain undigested and cause gas, bloating and diarrhea. ? Eat smaller, more frequent meals. This may ensure a better mix with available bile. Include small amounts of lean protein, such as poultry, fish and nonfat dairy, at every meal, along with vegetables, fruit and whole grains. ? Go easy on fat. Avoid high-fat foods, fried and greasy foods, and fatty sauces and gravies. Instead, choose nonfat or low-fat foods. Read labels and look for foods with 3 grams of fat or less a serving. ? Gradually increase the fiber in your diet. This can help normalize bowel movements by reducing incidents of diarrhea or constipation. However, it can also make gas and cramping worse. The best approach is to slowly increase the amount of fiber in your diet over a period of weeks. ? Be aware that after gallbladder surgery some people find that the following are difficult to digest: caffeinated beverages and dairy products. Talk with your doctor if your symptoms are severe, don't diminish, continue over time or if you lose weight and become weak. Foods to Avoid While your body adjusts, it's a good idea to avoid high-fat foods for a few weeks after having gallbladder surgery. High-fat foods include: ? Foods that are fried, like [place] fries and potato chips ? High-fat meats, such as anaya, bologna, sausage, ground beef, and ribs, pork products ? High-fat dairy products, such as cheese, ice cream, cream, whole milk, and sour cream ? Pizza ? Foods made with lard or butter ? Creamy soups or sauces ? Meat gravies ? Chocolate ? Oils, such as palm and coconut oil ? Skin of chicken or turkey High-fiber and gas-producing foods can also cause some people discomfort after gallbladder surgery, so you may want to introduce them slowly back into your diet. These include: ? Cereals ? Whole-grain breads ? Nuts ? Seeds ? Legumes ? [place] sprouts ? Broccoli ? Cauliflower ? Cabbage Spicy foods may also cause some gastrointestinal symptoms for a short time after gallbladder removal. Activity:: No lifting over 5 to 10 pounds for 2 weeks Equipment/Supplies:: No Equipment Needed Diet:: Low-fat diet for 2 weeks DS: Summary Status at Discharge Functional status at discharge: independent ambulation Overall status at discharge: patient is back to baseline Mental Status: mental status grossly normal Speech and Movement: speech and movement normal Mood: congruent mood Affect: normal affect Exam Psych Mental Status: mental status grossly normal Speech and Movement: speech and movement normal Mood: congruent mood Affect: normal affect DS: Data Vitals/I&O Vitals and I&O: Vital Signs Temperature 36.9 C 05/19/20 07:24 Temperature Source Tympanic 05/19/20 07:24 Pulse 55 L 05/19/20 07:24 Pulse Rhythm Regular 05/19/20 08:25 Respiratory Rate 17 05/19/20 07:24 Respiratory Effort Non-Labored 05/19/20 08:25 Respiratory Depth Normal 05/19/20 08:25 Respiratory Pattern Normal 05/19/20 08:25 Blood Pressure 109/52 L 05/19/20 07:24 Blood Pressure Mean 90 05/18/20 13:16 Blood Pressure Position Sitting 05/18/20 08:52 Pulse Oximetry 100 05/19/20 07:24 Respiratory End-tidal CO2 38 05/18/20 16:39 Oxygen Delivery Method Room Air 05/19/20 07:24 Oxygen Flow Rate 0 05/19/20 07:24 Pain Level 5 05/19/20 07:28 Comment 05/18/20 19:49 Intake & Output 05/18/20 05/19/20 05/19/20 23:59 11:59 23:59 Intake Total 2150 / 2200 1185.333 / 1185.333 Output Total 85 / 85 Balance 2064 / 2114 1185.333 / 1185.333 Weight 75.8 kg Intake: IV 2150 / 2200 203.333 / 203.333 Oral 982 / 982 Output: Urine 75 / 75 Estimated Blood Loss Other: Urine Color Yellow Yellow Urine Appearance Clear Clear Emesis Description None Voiding Methods Toilet Data Completed and Pending Labs on day of discharge: Labs from last 24 hours 05/18/20 14:00 COVID-19 PCR Negative Nasopharyn COVID-19 PCR Not Applicable Ref Test Perform Site [facility] lab [facility] Medical History Anemia (Resolved) Back pain (Chronic) history intermittent back pain for years. 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
[2020-05-19] MEDS: Ondansetron 4 MG/2 ML VIAL IVP ×2 (13:18→14:28)
[2020-05-19] MEDS: Normal Saline 1,000 ML 150 ML IV (14:06)
[2020-05-19 14:54] VITALS: BP 109/68; PULSE 99; RESP 18; TEMP 37; O2SAT 100
--- NOTE | 2020-05-19 16:26 | W.PM.DS.N ---
DS: Diagnosis Discharge Diagnosis (1) Acute cholecystitis: Status: Acute (2) Gallstones without obstruction of gallbladder: Status: Acute Discharge Plan Disposition Patient Disposition: HOME Condition: Stable Discharge Details Chief Complaint: Abd Prob Clinical Impression: Acute cholecystitis Reason For Visit: ACUTE HANK W/ STONES Admit Date/Time: 05/18/20 15:51 Admit Provider: Martha Dubon Attending Provider: Martha Dubon Primary Care Provider: Jemima Palacio ED Provider: Trudi Crum Hospital Course Hospital Course: Patient was admitted through the emergency department with acute abdominal pain. She was found to have a mild acute cholecystitis. Patient elected to have surgery and underwent uneventful laparoscopic cholecystectomy and is being discharged home today for routine postoperative care. Home Meds and New Rx's Prescriptions: New tramadol 50 mg tablet 50 mg PO Q6H PRNQty: 10 RF: 0 ondansetron HCl [Zofran] 4 mg tablet 4 mg PO Q6H PRNQty: 4 RF: 0 Continued ibuprofen 800 mg tablet 800 mg PO TID PRNRF: 0 cyclobenzaprine 5 mg tablet 10 mg PO HS PRN (Reason: muscle spasm) RF: 0 Iud 1 ea DIRECTED RF: 0 Discharge Instructions Instructions: Laparoscopic Cholecystectomy (DC) Additional Instructions: Care after Gallbladder Surgery -You should walk frequently, gradually, increasing the distance. You may climb stairs, just go slowly. -You can take Advil 600mg 4 times a day with food for the first week for pain; you may take your prescription medication as prescribed-in addition to the Advil. Discontinue Advil if it hurts your stomach. Do not take Advil if you are intolerant to aspirin products or have stomach problems. ? Use an ice bag for the first 72 hours. This helps to decrease swelling, which causes pain. It is normal to be more sore/painful and swollen towards the end of the day and first thing in the morning. ? Use milk of magnesia or prune juice to prevent constipation (this is a particular side effect of pain medication). Do not allow yourself to become constipated. ? Avoid fatty or greasy foods; introduce these slowly, with care, after about 1 month. Follow the low-fat diet sheet that will be given to you at the office or hospital. ? Start out eating very small, bland amounts of food. Do not take pain pills on an empty stomach. -you can shower today. No bathe for 2 weeks. ? Do not go swimming or sit in a hot tub for two weeks. ? There are no stitches to remove. ? Do not drive your car x72hrs and then only if you have no pain and can move freely. Do not drive if you are taking narcotic pain medications. ? You may resume sexual activity whenever pain and soreness subside, usually in 2 weeks. ? Do no lift anything over 5 lbs. for the first 10 days. Minimize strenuous activity for the next two weeks. ? You may return to work in one week, or when you feel able, provided you do not have to do any heavy lifting or prolonged standing. ? You should return to Dr. Dubon?s office for a post-op appointment about one week after surgery. Please call the Surgical Clinic at: [phone] to schedule an appointment. My Medications for pain are: ibuprofen and ultram When to Call the Office: ? If the incision becomes red or swollen, or there is more than a little drainage from it. ? If you develop a temperature higher than 100.5 F. ? If your eyes turn yellow ? Vomiting and can?t keep fluids down It's helpful to know a little background: The gallbladder collects bile, a fluid that is produced by the liver, and releases it when you eat to aid the breakdown and absorption of fat. Between meals, bile collects in the gallbladder and is concentrated. When the gallbladder is removed, bile is less concentrated and it drains continuously into the intestine. This affects digestion of fat and fat-soluble vitamins. How much of a problem it is varies from person to person. With time, the body often adjusts and becomes better at digesting fatty foods. The amount of fat eaten at one time also factors into the equation. Smaller amounts of fat are easier to digest. On the other hand, large amounts can remain undigested and cause gas, bloating and diarrhea. ? Eat smaller, more frequent meals. This may ensure a better mix with available bile. Include small amounts of lean protein, such as poultry, fish and nonfat dairy, at every meal, along with vegetables, fruit and whole grains. ? Go easy on fat. Avoid high-fat foods, fried and greasy foods, and fatty sauces and gravies. Instead, choose nonfat or low-fat foods. Read labels and look for foods with 3 grams of fat or less a serving. ? Gradually increase the fiber in your diet. This can help normalize bowel movements by reducing incidents of diarrhea or constipation. However, it can also make gas and cramping worse. The best approach is to slowly increase the amount of fiber in your diet over a period of weeks. ? Be aware that after gallbladder surgery some people find that the following are difficult to digest: caffeinated beverages and dairy products. Talk with your doctor if your symptoms are severe, don't diminish, continue over time or if you lose weight and become weak. Foods to Avoid While your body adjusts, it's a good idea to avoid high-fat foods for a few weeks after having gallbladder surgery. High-fat foods include: ? Foods that are fried, like [place] fries and potato chips ? High-fat meats, such as anaya, bologna, sausage, ground beef, and ribs, pork products ? High-fat dairy products, such as cheese, ice cream, cream, whole milk, and sour cream ? Pizza ? Foods made with lard or butter ? Creamy soups or sauces ? Meat gravies ? Chocolate ? Oils, such as palm and coconut oil ? Skin of chicken or turkey High-fiber and gas-producing foods can also cause some people discomfort after gallbladder surgery, so you may want to introduce them slowly back into your diet. These include: ? Cereals ? Whole-grain breads ? Nuts ? Seeds ? Legumes ? [place] sprouts ? Broccoli ? Cauliflower ? Cabbage Spicy foods may also cause some gastrointestinal symptoms for a short time after gallbladder removal. Stand Alone Forms: Nursing Discharge Form Referrals: Martha Dubon DO [OSTEOPATHIC DOCTOR] - 05/26/20 9:30 am Activity:: No lifting over 5 to 10 pounds for 2 weeks Equipment/Supplies:: No Equipment Needed Diet:: Low-fat diet for 2 weeks DS: Summary Status at Discharge Functional status at discharge: independent ambulation Overall status at discharge: patient is back to baseline Mental Status: mental status grossly normal Speech and Movement: speech and movement normal Mood: congruent mood Affect: normal affect Exam Psych Mental Status: mental status grossly normal Speech and Movement: speech and movement normal Mood: congruent mood Affect: normal affect DS: Data Vitals/I&O Vitals and I&O: Vital Signs Temperature 37 C 05/19/20 14:54 Temperature Source Tympanic 05/19/20 14:54 Pulse 99 H 05/19/20 14:54 Pulse Rhythm Regular 05/19/20 15:59 Respiratory Rate 18 05/19/20 14:54 Respiratory Effort Non-Labored 05/19/20 15:59 Respiratory Depth Normal 05/19/20 15:59 Respiratory Pattern Normal 05/19/20 15:59 Blood Pressure 109/68 05/19/20 14:54 Blood Pressure Mean 90 05/18/20 13:16 Blood Pressure Position Sitting 05/18/20 08:52 Pulse Oximetry 100 05/19/20 14:54 Respiratory End-tidal CO2 38 05/18/20 16:39 Oxygen Delivery Method Room Air 05/19/20 14:54 Oxygen Flow Rate 0 05/19/20 14:54 Pain Level 5 05/19/20 14:54 Comment 05/18/20 19:49 Intake & Output 05/18/20 05/19/20 05/19/20 23:59 11:59 23:59 Intake Total 2150 / 2200 1185.333 / 1405.333 220 / 1405.333 Output Total 85 / 85 Balance 2064 / 2114 1185.333 / 1405.333 220 / 1405.333 Weight 75.8 kg Intake: IV 2150 / 2200 203.333 / 303.333 100 / 303.333 Oral 982 / 1102 120 / 1102 Output: Urine 75 / 75 Estimated Blood Loss Other: Urine Color Yellow Yellow Yellow Urine Appearance Clear Clear Clear Emesis Description None Voiding Methods Toilet Toilet Data Completed and Pending Labs on day of discharge: Labs from last 24 hours 05/18/20 14:00 COVID-19 PCR Negative Nasopharyn COVID-19 PCR Not Applicable Ref Test Perform Site [facility] Medical History Anemia (Resolved) Back pain (Chronic) history intermittent back pain for years. 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
[2020-05-20 01:30] VITALS: BP 102/64; PULSE 93; RESP 17; TEMP 37.2; O2SAT 98
[2020-05-20] MEDS: Normal Saline Flush 10 ML SYR IVP ×2 (01:32→03:55)
[2020-05-20 01:35] VITALS: RESP 17; O2SAT 98
[2020-05-20] MEDS: Acetaminophen 500 MG TAB 1000 MG PO ×2 (01:43→08:00)
[2020-05-20] MEDS: Normal Saline 1,000 ML 150 ML IV (01:44)
[2020-05-20] MEDS: PIPERACILLIN/TAZO 4.5 GM in Normal Saline 100 ML IVPB ×2 (01:45→10:20)
[2020-05-20] MEDS: Ketorolac 30 MG/ML VIAL IVP ×2 (03:54→10:20)
[2020-05-20 07:56] LABS: ALT 166 U/L (14-59); AST 158 U/L (15-37); Albumin 2.7 g/dL (3.4-5.0); Alkaline Phosphatase 68 U/L (46-116); Amylase 31 U/L (25-115); Anion Gap 5.2 mmol/L (3-11); BUN 10 mg/dL (7-18); Bilirubin, Total 1.2 mg/dL (0.2-1.0); CO2 28.8 mmol/L (21.0-32.0); CREATININE 0.82 mg/dL (0.55-1.02); Calcium 7.7 mg/dL (8.5-10.1); Chloride 104 mmol/L (98-107); Glucose 93 mg/dL (74-106); Potassium 3.9 mmol/L (3.5-5.1); Sodium 138 mmol/L (136-145); Total Protein 5.5 g/dL (6.4-8.2)
[2020-05-20] MEDS: Ondansetron 4 MG/2 ML VIAL IVP (08:07)
[2020-05-20 08:19] VITALS: BP 106/68; PULSE 51; RESP 18; TEMP 36.6; O2SAT 100
[2020-05-20 09:52] LABS: Abs Immature Grans 0.02 10^3/uL (0.0-0.06); Absolute Basophil Count 0.03 10^3/uL (0.0-0.2); Absolute Eosinophil Count 0.18 10^3/uL (0.0-0.7); Absolute Monocyte Count 0.67 10^3/uL (0.1-0.8); Absolute Neutrophil Count 5.89 10^3/uL (1.2-6.7); Basophils % 0.4; Eosinophils % 2.1; HCT 34.6 % (36.0-46.0); HGB 11.3 g/dL (11.2-15.7); Immature Grans % 0.2; Lymphocytes % 19.1; MCH 31.7 pg (27.0-33.0); MCHC 32.7 % (32.0-36.0); MCV 97.2 fL (80-95); Neutrophils % 70.2; Nucleated RBC 0 %; Platelet Count 120 10^3/uL (130-400); RBC 3.56 10^6/uL (3.93-5.22); RDW 12.9 % (11.7-14.6); RDW-SD 46.4 fL; WBC 8.39 10^3/uL (4.4-10.8)
--- NOTE | 2020-05-20 20:08 | PDOC.CMDIS ---
- If Service Date Differs Date of service: 05/20/20 Time of Service: 20:08 LACE Index Scoring Tool - Questions: Length of Stay (in days): 3 Acuity (Admit via E.D.?): Yes E.D. Visits: 1 - Answers: Total Score: 7 Risk of Readmission: Low Risk Care Management Discharge Reason for Hospitalization: Acute Cholecystitis Discharge Plan: Maritza will return home with no additional services. She will be driven home via private vehicle by her boyfriend. Maritza requested a letter for work for her absence. CM explained that her discharge instructions will have the MD recommendations on them. She will follow up with her PCP and discharge plan of care. Patient/Family Education Needs: Review discharge instuctions regarding activity levels and medications, discussion of self care needs including ask me three.
== END 2020-05-20 13:23 | disposition home or self-care (01) ==
LOC: ER 13:48 → DSU 14:09 → SUR 14:34 → MS 17:14
PROVIDERS: Admitting Provider Surgery; Emergency Provider Physician Assistant; PCP Naturopath; Visit Provider Surgery
PROC: 0FT44ZZ Resection of Gallbladder, Percutaneous Endoscopic Approach (ICD-10-PCS; CPT 47562; principal; 2020-05-18 14:00)
DX: K91.0 Vomiting following gastrointestinal surgery (principal); K80.12 Calculus of gallbladder with acute and chronic cholecystitis without obstruction; F17.210 Nicotine dependence, cigarettes, uncomplicated; Z97.5 Presence of (intrauterine) contraceptive device; Z11.59 Encounter for screening for other viral diseases
CPT/HCPCS: 47562; 36415; 80053; 81025; 83690; 96361; 96365; 96367; 96375; 99238; 99252; 99285; NC; U0003; 74177; 76700; 81003; 81015; 82150; 85025; 88304; G0378; J0131; J0690; J1100; J1200; J1885; J2001; J2405; J2543; J3475; J3490

== ENCOUNTER 2020-05-26 18:05 | Outpatient (REF) | payer BC, SELFPAY ==
[2020-05-26 11:53] LABS: Abs Immature Grans 0.04 10^3/uL (0.0-0.06); Absolute Basophil Count 0.04 10^3/uL (0.0-0.2); Absolute Eosinophil Count 0.35 10^3/uL (0.0-0.7); Absolute Lymphocyte Count 1.62 10^3/uL (1.2-3.4); Absolute Monocyte Count 1.01 10^3/uL (0.1-0.8); Absolute Neutrophil Count 7.03 10^3/uL (1.2-6.7); Basophils % 0.4; Eosinophils % 3.5; HCT 38.7 % (36.0-46.0); HGB 13.1 g/dL (11.2-15.7); Immature Grans % 0.4; Lymphocytes % 16.1; MCH 31.2 pg (27.0-33.0); MCHC 33.9 % (32.0-36.0); MCV 92.1 fL (80-95); MPV 10.6 fL (8.0-11.0); Neutrophils % 69.6; Nucleated RBC 0 %; Platelet Count 320 10^3/uL (130-400); RDW-SD 40.4 fL; WBC 10.09 10^3/uL (4.4-10.8)
[2020-05-26 12:02] LABS: ALT 62 U/L (14-59); AST 18 U/L (15-37); Albumin 3.4 g/dL (3.4-5.0); Alkaline Phosphatase 128 U/L (46-116); Anion Gap 10.6 mmol/L (3-11); BUN 9 mg/dL (7-18); Bilirubin, Total 0.4 mg/dL (0.2-1.0); CO2 27.4 mmol/L (21.0-32.0); CREATININE 0.72 mg/dL (0.55-1.02); Calcium 8.8 mg/dL (8.5-10.1); Chloride 98 mmol/L (98-107); Glucose 88 mg/dL (74-106); Potassium 4.4 mmol/L (3.5-5.1); Sodium 136 mmol/L (136-145); Total Protein 7.1 g/dL (6.4-8.2)
== END 2020-05-26 18:25 ==
LOC: LBN 18:05
PROVIDERS: PCP Naturopath; Visit Provider Surgery
DX: K81.0 Acute cholecystitis (principal)
CPT/HCPCS: 80053; 85025

== ENCOUNTER 2020-06-23 07:38 | Outpatient (CLI) | payer BC, SELFPAY ==
[2020-06-26 06:01] LABS: Patient Race White; SARS-CoV-2 RNA Undetected (Undetected); SARS-CoV-2 Specimen Source Nasopharynx
== END 2020-06-23 07:58 ==
PROVIDERS: PCP Naturopath; Visit Provider Naturopath
DX: Z11.59 Encounter for screening for other viral diseases (principal)
CPT/HCPCS: U0003

== ENCOUNTER 2021-01-15 02:51 | Outpatient (CLI) | payer BC, SELFPAY ==
[2021-01-16 18:07] LABS: COVID-19 RT-PCR UVMMC Result Negative (Negative)
== END 2021-01-15 02:52 | disposition home or self-care (01) ==
LOC: LBO 02:51
PROVIDERS: PCP Naturopath; Visit Provider Naturopath
DX: Z20.822 Contact with and (suspected) exposure to COVID-19 (principal)
CPT/HCPCS: U0003

== ENCOUNTER 2021-01-26 08:11 | Outpatient (CLI) | payer BC, SELFPAY ==
[2021-01-27 13:13] LABS: COVID-19 RT-PCR UVMMC Result Negative (Negative)
== END 2021-01-26 08:12 | disposition home or self-care (01) ==
PROVIDERS: PCP Naturopath; Visit Provider Naturopath
DX: Z20.822 Contact with and (suspected) exposure to COVID-19 (principal)
CPT/HCPCS: U0003

== ENCOUNTER 2022-06-17 16:21 | Outpatient (REF) | payer BC, SELFPAY | END 2022-06-17 16:22 | disposition home or self-care (01) | LOC: LBN 16:21 | PROVIDERS: PCP Naturopath; Visit Provider Nurse Practitioner Family | DX: N39.0 Urinary tract infection, site not specified (principal) | CPT/HCPCS: 87086 ==

== ENCOUNTER 2022-12-16 19:25 | Emergency (ER) | payer BC, SELFPAY ==
[2022-12-16 19:54] VITALS: BP 109/75; PULSE 78; RESP 16; TEMP 37.1; O2SAT 98
--- NOTE | 2022-12-16 21:07 | W.ED.GENAD ---
Discharge Plan Disposition Patient Disposition: Home Condition: Stable Discharge Details Clinical Impression: Nausea vomiting and diarrhea Primary Care Provider: Jemima Palacio ED Provider: Donnie Kelly Home Meds and New Rx's Prescriptions: Continued ibuprofen 800 mg tablet 800 mg PO TID PRN Patient Comments: hold while taking prednisone cyclobenzaprine 5 mg tablet 10 mg PO HS PRN (Reason: muscle spasm) ibuprofen 800 mg tablet 800 mg PO Q8H PRN (Reason: pain) Qty: 60 3RF Rx Instructions: take w/ food tramadol 50 mg tablet 50 mg PO Q6H PRN (Reason: pain) Qty: 7 0RF hydrocodone-acetaminophen 5-325 mg tablet 1 tab PO Q6H MDD 4 PRN (Reason: pain) Qty: 10 0RF Iud 1 ea DIRECTED tramadol 50 mg tablet 50 mg PO Q6H PRNQty: 10 0RF Rx Instructions: will cause constipation ondansetron HCl [Zofran] 4 mg tablet 4 mg PO Q6H PRNQty: 4 0RF Discharge Instructions Instructions: Acute Nausea and Vomiting (ED) Additional Instructions: I will call you if your covid test is positive follow up with your primary care provider as needed if you feel more ill, have severe abdominal pain or persistent vomiting return to the emergency department Stand Alone Forms: Work Release Medical Decision Making 37 yo female with no chronic medical problems comes in with n/v/d yesterday that has resolved, is unsure if she can go to work tonight. She states she woke up with the symptoms and was persistent all day yesterday. No abdominal pain, no fevers or chills. She has no symptoms now, denies any sick contact. She is caox4 and appears well, has no abdominal tenderness, moist membranes, tolerating po without problems. Suspect she had a food illness that resolved, do not feel any testing indicated given symptoms have resolved. She is requesting a covid test before she returns to work which I ordered and will call if she is positive. Return precautions given Differential Diagnosis Differential Diagnosis: food illness, gastroenteritis HPI General Mode of arrival: ambulatory. Date/Time Provider Initiated Documentation: 12/16/22 19:31. Limitations to Documentation: no limitations. Information obtained by: patient. History of Present Illness 37 year old F presents to the emergency department with the chief complaint of n/v/d, described as moderate, and it has been constant. No relieving factors improve symptom(s), No exacerbating factors reported . Patient notes denies fever/chills. Patient did receive the following treatments prior to arrival, none Related Data Home Medications Medication Instructions Recorded Confirmed cyclobenzaprine 5 mg tablet 10 mg PO HS PRN muscle spasm 11/12/18 06/02/20 ibuprofen 800 mg tablet 800 mg PO TID PRN 11/12/18 06/02/20 Iud 1 ea DIRECTED 05/18/20 06/02/20 ondansetron HCl 4 mg tablet 4 mg PO Q6H PRN #4 tabs 05/19/20 06/02/20 (Zofran) tramadol 50 mg tablet 50 mg PO Q6H PRN #10 tabs 05/19/20 06/02/20 hydrocodone 5 mg-acetaminophen 325 1 tab PO Q6H PRN pain #10 tabs 05/20/20 06/02/20 mg tablet ibuprofen 800 mg tablet 800 mg PO Q8H PRN pain #60 tabs 05/26/20 06/02/20 tramadol 50 mg tablet 50 mg PO Q6H PRN pain #7 tabs 05/26/20 06/02/20 Previous Rx's Medication Instructions Recorded ondansetron HCl 4 mg tablet 4 mg PO Q6H PRN #4 tabs 05/19/20 (Zofran) tramadol 50 mg tablet 50 mg PO Q6H PRN #10 tabs 05/19/20 hydrocodone 5 mg-acetaminophen 325 1 tab PO Q6H PRN pain #10 tabs 05/20/20 mg tablet ibuprofen 800 mg tablet 800 mg PO Q8H PRN pain #60 tabs 05/26/20 tramadol 50 mg tablet 50 mg PO Q6H PRN pain #7 tabs 05/26/20 Allergies Allergy/AdvReac Type Severity Reaction Status Date / Time No Known Allergies Allergy Verified 06/02/20 10:04 General Stated Complaint: Nausea/Vomit/Diar NEO: 4 Review of Systems All systems reviewed & are unremarkable except as noted in HPI and below Constitutional Constitutional: Denies chills, Denies fever(s) and Denies weakness Cardiovascular Cardiovascular: Denies chest pain and Denies dyspnea Respiratory Respiratory: Denies cough and Denies dyspnea Integumentary/Breasts Skin/Breast: Denies rash Neurologic Neurologic: Denies weakness PFSH All Active Problems (Updated 12/16/22 @ 21:11 by Donnie Kelly MD) Nausea vomiting and diarrhea (Acute) Acute cholecystitis (Acute) Gallstones without obstruction of gallbladder (Acute) Spasm (Acute) Medical History (Updated 12/16/22 @ 21:11 by Donnie Kelly MD) Anemia Back pain history intermittent back pain for years. 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[employer] What type of physical activity do you participate in: regular exercise Do you feel safe at home: Yes Do you feel safe in your relationship?: Yes Exam Const General: no acute distress Orientation: alert HENMT Head: normal to inspection Ears: external ears normal General nose exam: external nose normal Mouth: moist mucous membranes Eyes General: appearance normal, both eyes and all related structures Neck Neck: normal visual inspection Resp Effort & Inspection: normal respiratory effort and able to speak in complete sentences Cardio Rate: regular rate GI Palpation: soft and nontender Skin General skin exam: no rashes or lesions noted Neuro General: patient alert and patient oriented x3 Extrem General: normal to inspection Psych Mental Status: mental status grossly normal Course Vital Signs Vital signs: Vital Signs Temperature 37.1 C 12/16/22 19:54 Pulse 78 12/16/22 19:54 Respiratory Rate 16 12/16/22 19:54 Blood Pressure 109/75 12/16/22 19:54 Pulse Oximetry 98 12/16/22 19:54 Temperature 37.1 C 12/16/22 19:54 Temperature Source Oral 12/16/22 19:54 Pulse 78 12/16/22 19:54 Respiratory Rate 16 12/16/22 19:54 Respiratory Effort Normal 12/16/22 20:00 Blood Pressure 109/75 12/16/22 19:54 Pulse Oximetry 98 12/16/22 19:54 Oxygen Delivery Method Room Air 12/16/22 19:54 Oxygen Flow Rate 0 12/16/22 19:54 Pain Level 0 12/16/22 19:54
[2022-12-16 21:11] LABS: Source Nasal/Nares
[2022-12-16 21:25] VITALS: BP 121/87; PULSE 80; RESP 16; TEMP 36.8; O2SAT 98
[2022-12-16 21:40] LABS: COVID-19 PCR Negative (Negative)
== END 2022-12-16 21:27 | disposition home or self-care (01) ==
PROVIDERS: Emergency Provider Emergency Medicine; PCP Naturopath
DX: R11.2 Nausea with vomiting, unspecified (principal); R19.7 Diarrhea, unspecified; Z20.822 Contact with and (suspected) exposure to COVID-19
CPT/HCPCS: 87635; 99282; 99283

== ENCOUNTER 2023-09-10 18:47 | Outpatient (REF) | payer BC, SELFPAY | END 2023-09-10 18:48 | disposition home or self-care (01) | LOC: LBN 18:47 | PROVIDERS: PCP Naturopath; Visit Provider Physician Assistant Medical | DX: R30.0 Dysuria (principal) | CPT/HCPCS: 87086 ==

== ENCOUNTER 2023-10-16 14:36 | Outpatient (REF) | payer BC, SELFPAY | END 2023-10-16 14:37 | disposition home or self-care (01) | LOC: LBN 14:36 | PROVIDERS: PCP Naturopath; Visit Provider Physician Assistant Medical | DX: R82.998 Other abnormal findings in urine (principal); M54.89 Other dorsalgia | CPT/HCPCS: 87086 ==

== ENCOUNTER 2023-10-23 12:46 | Outpatient (REF) | payer BC, SELFPAY | END 2023-10-23 12:47 | disposition home or self-care (01) | LOC: NCHCN 12:46 | PROVIDERS: PCP Naturopath; Visit Provider Physician Assistant Medical | DX: N89.8 Other specified noninflammatory disorders of vagina (principal) | CPT/HCPCS: 87480; 87510; 87660 ==

== ENCOUNTER 2024-06-13 21:07 | Emergency (ER) | payer BC, SELFPAY ==
[2024-06-13] VITALS (15 sets, daily range): BP systolic 115–134; BP diastolic 49–74; PULSE 68–77; RESP 14–20; TEMP 36.5; O2SAT 99–100
--- NOTE | 2024-06-13 21:31 | W.ED.GENAD ---
Discharge Plan Disposition Patient Disposition: Home Condition: Stable Discharge Details Clinical Impression: URI (upper respiratory infection), Bronchitis Primary Care Provider: Jemima Palacio ED Provider: Donnie Kelly Home Meds and New Rx's Prescriptions: New prednisone 20 mg tablet 60 mg PO DAILY 4 Days Qty: 12 0RF amoxicillin 875 mg tablet 875 mg PO BID 7 Days Qty: 14 0RF Continued ibuprofen 800 mg tablet 800 mg PO TID PRN Patient Comments: hold while taking prednisone cyclobenzaprine 5 mg tablet 10 mg PO HS PRN (Reason: muscle spasm) Iud 1 ea AD DIRECTED Discharge Instructions Additional Instructions: If not better within a week follow-up with your primary care provider If you feel more ill or have worsening shortness of breath return to the emergency department for reevaluation HPI General Mode of arrival: ambulatory. Date/Time Provider Initiated Documentation: 06/13/24 21:15. Limitations to Documentation: no limitations. Information obtained by: patient. History of Present Illness 38 year old F presents to the emergency department with the chief complaint of cough, described as moderate, Patient started experiencing this day(s) (3) and it has been constant. No relieving factors improve symptom(s), No exacerbating factors reported . Patient notes no other symptoms. and shortness of breath; denies fever/chills. Patient did receive the following treatments prior to arrival, none Related Data Home Medications ?Medication ?Instructions ?Recorded ?Confirmed cyclobenzaprine 5 mg tablet 10 mg PO HS PRN muscle spasm 11/12/18 06/13/24 ibuprofen 800 mg tablet 800 mg PO TID PRN 11/12/18 06/13/24 Iud 1 ea AD DIRECTED 05/18/20 06/13/24 amoxicillin 875 mg tablet 875 mg PO BID 7 days #14 tabs 06/13/24 prednisone 20 mg tablet 60 mg (3 x 20 mg) PO DAILY 4 days 06/13/24 #12 tabs Previous Rx's ?Medication ?Instructions ?Recorded amoxicillin 875 mg tablet 875 mg PO BID 7 days #14 tabs 06/13/24 prednisone 20 mg tablet 60 mg (3 x 20 mg) PO DAILY 4 days 06/13/24 #12 tabs Allergies Allergy/AdvReac Type Severity Reaction Status Date / Time No Known Allergies Allergy Verified 09/15/24 21:17 General Stated Complaint: SOB NEO: 2 Review of Systems All systems reviewed & are unremarkable except as noted in HPI and below Constitutional Constitutional: Denies chills, Denies fever(s) and Denies weakness Cardiovascular Cardiovascular: Denies chest pain and Reports dyspnea Respiratory Respiratory: Reports cough and Reports dyspnea Gastrointestinal Gastrointestinal: Denies abdominal pain and Denies vomiting Neurologic Neurologic: Denies weakness Exam Const General: no acute distress Orientation: alert HENMT Head: normal to inspection Ears: external ears normal General nose exam: external nose normal Mouth: moist mucous membranes Eyes General: appearance normal, both eyes and all related structures Neck Neck: normal visual inspection Resp Effort & Inspection: normal respiratory effort and able to speak in complete sentences Auscultation: wheezes Cardio Rate: regular rate Skin General skin exam: no rashes or lesions noted Neuro General: patient alert and patient oriented x3 Extrem General: normal to inspection Psych Mental Status: mental status grossly normal Course Vital Signs Vital signs: Respiratory Effort Normal 06/13/24 21:19 Pain Level 4 06/13/24 21:13 Medical Decision Making 38-year-old female who says she has asthma when she was younger and sometimes flares when she gets sick comes in with 2 to 3 days of mild sore throat that has since moved to her chest and is coughing. She denies any fevers or chest pain. She says she feels it is hard to take a deep breath. She has no pleuritic type chest pain. She has no calf tenderness or leg swelling. She is speaking in full sentences on exam, she does have wheezing bilaterally in all lung scott. There is no focal rhonchi. Suspect she has a URI versus asthma exacerbation, given she is under percent on room air and has no fevers do not feel chest imaging indicated. Will treat her symptoms with a DuoNeb and prednisone and given she has had the symptoms for several days with no improvement will initiate antibiotics for possible bronchitis. Flu and COVID-negative. Patient stable and feels significantly better now has clear lung sounds. Suspect reactive airway disease with respiratory infection. She is stable for discharge will follow-up with her PCP, return precautions given Differential Diagnosis Differential Diagnosis: uri, bronchitis. pneumonia Quality:SDOH Health Related Social Needs: No Data to Display [facility] All Active Problems (Updated 06/13/24 @ 21:36 by Donnie Kelly MD) Bronchitis (Acute) URI (upper respiratory infection) (Acute) Acute cholecystitis (Acute) Gallstones without obstruction of gallbladder (Acute) Spasm (Acute) Medical History (Updated 06/13/24 @ 21:36 by Donnie Kelly MD) Anemia Depression Back pain history intermittent back pain for years. 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
[2024-06-13] MEDS: predniSONE 20 MG TAB 60 MG PO (21:52)
[2024-06-13] MEDS: Amoxicillin 875/Clav. 125 TAB PO (21:52)
[2024-06-13] MEDS: Albuterol/Ipratropium 3 ML UPD VIAL UPD (21:52)
== END 2024-06-13 23:45 | disposition home or self-care (01) ==
PROVIDERS: Emergency Provider Emergency Medicine; PCP Naturopath
DX: J20.9 Acute bronchitis, unspecified (principal); J06.9 Acute upper respiratory infection, unspecified; R07.0 Pain in throat; R06.02 Shortness of breath
CPT/HCPCS: 94640; 99283; J7512; J7620